=== PATIENT | female | born 1965 | race Caucasian/White ===

== ENCOUNTER 2016-02-17 10:58 | Inpatient (IN) | payer BC ==
[~2016-02-17] VITALS: Ht 162.6 cm; Wt 53.4 kg
[2016-02-17] VITALS (8 sets, daily range): BP systolic 82–123; BP diastolic 40–73; PULSE 101–122; TEMP 37.4–39.3; O2SAT 94–100; Ht 162.6 cm; Wt 53.4 kg
[2016-02-17] MEDS ORDERED: MoRPHine SULFATE 4 MG/ML 1 ML CARP\\VIAL IV STA (11:18)
[2016-02-17] MEDS ORDERED: SODIUM CHLORIDE 0.9% 1000ML 1,000 ML IV STA (11:18)
[2016-02-17] MEDS ORDERED: ONDANSETRON INJ 2 MG/ML 2 ML VIAL IV STA (11:18)
[2016-02-17] MEDS ORDERED: CLON0.5T3 PO (11:19)
[2016-02-17 11:31] LABS: BASO % 0.1 %; BASO ABS # 0.02 K/uL (0-0.2); COMPLETE YES; EOS % 0.1 %; HEMATOCRIT 40.6 % (37-47); IG% 0.3 %; LYMPH % 3.7 %; LYMPH ABS # 0.69 K/uL (1.2-3.4); MEAN CELL VOLUME 91.4 fL (80-100); MEAN CORPUSCULAR HEMOGLOBIN 31.5 pg (25-34); MEAN CORPUSCULAR HGB CONC 34.5 g/dl (32-36); MEAN PLATELET VOLUME 9.4 fL (7.4-10.4); MONO % 5.9 %; NEUT % 89.9 %; PLATELET COUNT 276 K/uL (130-400); RED BLOOD COUNT 4.44 M/uL (4.2-5.4)
[2016-02-17 11:52] LABS: BUN/CREATININE RATIO 18.1 (10-20); CALCIUM 8.8 mg/dl (8.5-10.1); POTASSIUM 3.4 mmol/L (3.5-5.1)
--- NOTE | 2016-02-17 12:01 | DIAGNOSTIC IMAGING REPORT ---
CT OF THE ABDOMEN AND PELVIS WITHOUT CONTRAST, STONE PROTOCOL CLINICAL HISTORY: Right flank pain and hematuria. COMPARISON STUDY: CT of the abdomen and pelvis September 12, 2014. TECHNIQUE: Helical axial images of the abdomen and pelvis were obtained without IV or oral contrast according to renal stone protocol. FINDINGS: There is severe right hydroureteronephrosis due to a 1.1 x 0.8 cm mid right ureteral calculus located at the level the inferior right sacroiliac joint. Note is made of a 1.2 cm calculus within the lower pole of the right kidney. There is a 1.8 x 1 cm calculus within the right renal pelvis. There are bilateral renal calculi. There is no left hydronephrosis. Mild biliary ductal dilatation is unchanged since prior CT. There is no pancreatic ductal dilatation. Unenhanced images of the spleen and adrenal glands are unremarkable. There is no evidence for a bowel obstruction. There is mild right perinephric and periureteral infiltration. There is sigmoid diverticulosis without evidence for acute diverticulitis. No suspicious osseous lesions are identified. IMPRESSION: 1. 1.1 x 0.8 cm mid right ureteral calculus which results in severe right hydroureteronephrosis. 2. 1.8 x 1 cm right renal pelvis calculus and multiple right renal calculi. Electronically signed by: Eladio Melendrez M.D. 02/17/2016 11:59 AM Dictated Date/Time: 02/17/2016 11:49 AM
[2016-02-17] MEDS ORDERED: MoRPHine SULFATE 10 MG/ML CARP/VIAL IV STA (12:06)
[2016-02-17 12:35] LABS: URINE APPEARANCE CLOUDY (CLEAR); URINE BILIRUBIN NEG (NEG); URINE COLOR DK YELLOW; URINE EPITHELIAL CELL AUTO >30 /lpf (0-5); URINE NITRITE NEG (NEG); URINE SPECIFIC GRAVITY 1.033 (1.000-1.030); UROBILINOGEN NEG (NEG)
[2016-02-17 12:43] LABS: MANUAL MICROSCOPIC REQUIRED? NO; REVIEW REQ? YES
[2016-02-17] MEDS ORDERED: CEFTRIAXONE SOD INJ 1 GM ADDVIAL IV STA (13:09)
--- NOTE | 2016-02-17 13:47 | History and Physical ---
History & Physical Date & Time of Service: Feb 17, 2016 at 13:47 . Chief Complaint: flank pain, chills . Primary Care Physician: Quan Jones PA-C . History of Present Illness Source: patient, clinic records, hospital records 51 YO female followed by Quan Jones PA-C for primary care and Dr. Reese for Urology. History of multiple occurrences of renal / ureteral calculi, s/p multiple stents and other procedures. Developed right flank pain yesterday. Pain severe (10/10), radiating towards right buttock. No dysuria or hematuria. Severe chills, but no confirmed fever. Experiencing nausea and vomiting without hematemesis. Tried taking Percocet for pain without benefit. . Past Medical/Surgical History Chronic Medical Problems: (1) Endometriosis Status: Chronic (2) History of renal calculi Status: Chronic Surgical Problems: (1) Status post appendectomy Status: Chronic (2) Status post hysterectomy Status: Chronic (3) Status post laparoscopic procedure Permanent Comment: endometriosis Status: Chronic (4) Status post tubal ligation Status: Chronic . Family History FATHER Leukemia MOTHER Cardiac pacemaker Social History Smoking Status: Current Every Day Smoker (2 PPD) Occupational Status: employed Multi-Drug Resistant Organisms History of MDRO: No Allergies Coded Allergies: Oxycodone (Unverified Adverse Reaction, Unknown, upset stomach/nausea, 02/16) Home Medications Scheduled Clonazepam (Klonopin), 0.5 MG PO HS Review of Systems Constitutional: + chills, No fever, No weight loss Eyes: No diplopia, No worsening of vision ENT: No hearing loss, No nasal symptoms, No sore throat Respiratory: No cough, No shortness of breath, No wheezing Cardiovascular: No chest pain Abdomen: + nausea, + vomiting, No GI bleeding, No diarrhea Musculoskeletal: No joint pain, No muscle pain Genitourinary - Female: + problem reported (right flank pain), No dysuria, No hematuria Hematologic / Lymphatic: + abnormal bleeding/bruising (bruises easily), No swollen lymph nodes Integumentary: No new/changing skin lesions, No rash Physical Exam Vital Signs Date Time Temp Pulse Resp B/P Pulse Ox O2 Delivery O2 Flow Rate FiO2 02/17/16 12:24 98 02/17/16 12:21 100 16 107/67 99 Room Air 02/17/16 11:01 37.0 91 17 114/81 99 Room Air General Appearance: WD/WN, + moderate distress Head: normocephalic Eyes: normal inspection, PERRL, EOMI, sclerae normal ENT: normal ENT inspection, pharynx normal Neck: supple, no adenopathy, thyroid normal, no JVD, trachea midline Respiratory/Chest: lungs clear, no respiratory distress, no accessory muscle use Cardiovascular: regular rate, rhythm, no edema, no gallop, no JVD, + systolic murmur (I/ systolic murmur at base) Abdomen/GI: soft, no organomegaly, + tenderness (RLQ tenderness with guarding, but no rebound) Back: + right CVA tenderness Extremities/Musculoskelatal: normal inspection, no calf tenderness, no pedal edema 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 (PERRL, EOMI, no facial palsy), alert, normal mood/affect, oriented x 3 Skin: normal color, warm/dry, no rash Lymphatic: no adenopathy Diagnostics Laboratory Results Results Past 24 Hours Test 02/17/16 11:16 Range/Units White Blood Count 18.90 4.8-10.8 K/uL Red Blood Count 4.44 4.2-5.4 M/uL Hemoglobin 14.0 12.0-16.0 g/dL Hematocrit 40.6 37-47 % Mean Corpuscular Volume 91.4 80-100 fL Mean Corpuscular Hemoglobin 31.5 25-34 pg Mean Corpuscular Hemoglobin Concent 34.5 32-36 g/dl Platelet Count 276 130-400 K/uL Mean Platelet Volume 9.4 7.4-10.4 fL Neutrophils (%) (Auto) 89.9 % Lymphocytes (%) (Auto) 3.7 % Monocytes (%) (Auto) 5.9 % Eosinophils (%) (Auto) 0.1 % Basophils (%) (Auto) 0.1 % Neutrophils # (Auto) 17.01 1.4-6.5 K/uL Lymphocytes # (Auto) 0.69 1.2-3.4 K/uL Monocytes # (Auto) 1.12 0.11-0.59 K/uL Eosinophils # (Auto) 0.01 0-0.5 K/uL Basophils # (Auto) 0.02 0-0.2 K/uL RDW Standard Deviation 41.7 36.4-46.3 fL RDW Coefficient of Variation 12.4 11.5-14.5 % Immature Granulocyte % (Auto) 0.3 % Immature Granulocyte # (Auto) 0.05 0.00-0.02 K/uL Urine Color DK YELLOW Urine Appearance CLOUDY CLEAR Urine pH 5.0 4.5-7.5 Urine Specific [place] 1.033 1.000-1.030 Urine Protein NEG NEG Urine Glucose (UA) NEG NEG Urine Ketones TRACE NEG Urine Occult Blood 2+ NEG Urine Nitrite NEG NEG Urine Bilirubin NEG NEG Urine Urobilinogen NEG NEG Urine Leukocyte Esterase SMALL NEG Urine WBC (Auto) 10-30 0-5 /hpf Urine RBC (Auto) 0-4 0-4 /hpf Urine Hyaline Casts (Auto) 1-5 0-5 /lpf Urine Epithelial Cells (Auto) >30 0-5 /lpf Urine Bacteria (Auto) 1+ NEG Urine Crystals CALCIUM OXALATE NONE PRSENT Sodium Level 140 136-145 mmol/L Potassium Level 3.4 3.5-5.1 mmol/L Chloride Level 106 98-107 mmol/L Carbon Dioxide Level 24 21-32 mmol/L Anion Gap 10.0 3-11 mmol/L Blood Urea Nitrogen 18 7-18 mg/dl Creatinine 1.00 0.60-1.20 mg/dl Est Creatinine Clear Calc Drug Dose 57.4 ml/min Estimated GFR () 76.6 Estimated GFR (Non- 66.1 BUN/Creatinine Ratio 18.1 10-20 Random Glucose 85 70-99 mg/dl Calcium Level 8.8 8.5-10.1 mg/dl Total Bilirubin 0.7 0.2-1 mg/dl Direct Bilirubin 0.2 0-0.2 mg/dl Aspartate Amino Transf (AST/SGOT) 15 15-37 U/L Alanine Aminotransferase (ALT/SGPT) 14 12-78 U/L Alkaline Phosphatase 50 45-117 U/L Total Protein 7.1 6.4-8.2 gm/dl Albumin 3.9 3.4-5.0 gm/dl Lipase 86 73-393 U/L Diagnostic Radiology CT OF THE ABDOMEN AND PELVIS WITHOUT CONTRAST, STONE PROTOCOL CLINICAL HISTORY: Right flank pain and hematuria. COMPARISON STUDY: CT of the abdomen and pelvis September 12, 2014. TECHNIQUE: Helical axial images of the abdomen and pelvis were obtained without IV or oral contrast according to renal stone protocol. FINDINGS: There is severe right hydroureteronephrosis due to a 1.1 x 0.8 cm mid right ureteral calculus located at the level the inferior right sacroiliac joint. Note is made of a 1.2 cm calculus within the lower pole of the right kidney. There is a 1.8 x 1 cm calculus within the right renal pelvis. There are bilateral renal calculi. There is no left hydronephrosis. Mild biliary ductal dilatation is unchanged since prior CT. There is no pancreatic ductal dilatation. Unenhanced images of the spleen and adrenal glands are unremarkable. There is no evidence for a bowel obstruction. There is mild right perinephric and periureteral infiltration. There is sigmoid diverticulosis without evidence for acute diverticulitis. No suspicious osseous lesions are identified. IMPRESSION: 1. 1.1 x 0.8 cm mid right ureteral calculus which results in severe right hydroureteronephrosis. 2. 1.8 x 1 cm right renal pelvis calculus and multiple right renal calculi. Electronically signed by: Eladio Melendrez M.D. 02/17/2016 11:59 AM Dictated Date/Time: 02/17/2016 11:49 AM . Impression Assessment and Plan RIGHT URETERAL CALCULUS / HYDRONEPHROSIS / PROBABLE UTI History of nephrolithiasis. Right flank pain starting yesterday. No dysuria or hematuria. No fever, but experiencing severe chills. WBC 18,000. BP and lactate OK. UA showed leukocyte esterase, WBC's, bacteria, calcium oxalate crystals, many epithelial cells. CT demonstrated 1.1 cm calculus in right mid ureter with associated hydronephrosis. Urine culture obtained in ED. Received 1 dose of IV ceftriaxone which will be continued. IV fluids, tamsulosin, analgesics, anti-emetics. Consult Urology. HYPOKALEMIA K = 3.4. IV replacement. Follow. VTE PROPHYLAXIS No anticoagulants because of ureteral calculus and possible need for surgical intervention. SCD's. Ambulate. DISPOSITION Admit to Med-Surg Unit. Expected discharge to home. Medical follow-up with Quan Jones PA-C. Urology follow-up with Dr. Reese. . VTE Prophylaxis Given or contraindicated: SCD's
[2016-02-17 13:57] LABS: URINE APPEARANCE CLEAR (CLEAR); URINE BILIRUBIN NEG (NEG); URINE COLOR YELLOW; URINE EPITHELIAL CELL AUTO >30 /lpf (0-5); URINE NITRITE NEG (NEG); URINE PH 5.5 (4.5-7.5); URINE SPECIFIC GRAVITY 1.021 (1.000-1.030); UROBILINOGEN NEG (NEG)
[2016-02-17 13:59] LABS: MANUAL MICROSCOPIC REQUIRED? NO; REVIEW REQ? YES
[2016-02-17] MEDS ORDERED: HYDROmorphone INJ 1 MG/ML SYR IV ONE (14:30)
[2016-02-17] MEDS ORDERED: TAMSULOSIN HCL 0.4 MG CAP PO ONE (14:49)
--- NOTE | 2016-02-17 15:16 | EMERGENCY ROOM VISIT NOTE ---
ED Visit Note First contact with patient: 11:05 Chief Complaint: Flank pain. History of Present Illness: Ms. Grayson is a 51 year-old white female complaining of right flank pain. Historically patient reports she has a history of multiple kidney stones with complications of urinary tract infections, passing multiple stones at one time and large stones requiring surgery. Patient reports a 2 onset of right flank pain that started approximately 12-13 hours ago. Since that time the pain has been constant. The pain is currently described as sharp. The pain is radiating around the abdomen and into the right lower quadrant. She has not identified any aggravating or alleviating factors related to the pain. She reports she's been using Percocet cheek is her approximately 15-20 minutes of relief and then the pain becomes severe again. Associated with the pain there has been chills but no ashley fever and nausea with 1 episode of vomiting. Patient denies fevers, sweats, skin eruptions, skin color changes, upper respiratory tract symptoms, shortness of breath, chest pain, diarrhea, constipation, rectal bleeding, black/tarry stools, urinary symptoms, hematuria, vaginal bleeding, vaginal discharge, rectal/genital paresthesias, bowel and bladder dysfunction, lower extremity weakness/numbness/tingling. Review of Systems: As noted above in history of present illness. All body systems were reviewed and found to be negative as noted above. Past Medical History: As previously noted s/p appendectomy, hysterectomy, and multiple laparoscopic surgeries for endometriosis. Current Medications: Klonopin, Percocet. Allergies to Medications: Percocet; nauseous Social History: Patient is not employed; she feels safe in her home environment ; she admits to tobacco use and denies alcohol use. Physical Examination: Vital Signs: Date Time Temp Pulse Resp B/P Pulse Ox O2 Delivery O2 Flow Rate FiO2 02/17/16 15:00 38.4 109 16 123/73 97 Room Air 02/17/16 14:01 104 18 105/72 99 Room Air 02/17/16 13:58 99 Room Air 02/17/16 12:24 98 02/17/16 12:21 100 16 107/67 99 Room Air 02/17/16 11:01 37.0 91 17 114/81 99 Room Air GENERAL: 51-year-old female in mild to moderate distress due to pain, nontoxic- appearing, afebrile and hemodynamically stable. NEUROLOGICAL: Awake, alert and oriented to person, place and time. Answering questions appropriately and following commands. Normal gait. Good hand eye coordination. SKIN: Warm, dry and pink. No soft tissue eruptions or trauma noted. HEENT: Atraumatic and normocephalic. PERRLA. Sclera white and conjunctiva pink. Oral cavity moist and pink. Pharynx is nonerythematous or edematous. Speech normal. No lymphadenopathy. Trachea midline. No jugular venous distention. BACK: No tenderness over the bony spine or paraspinous muscles. Right sided CVA tenderness. THORAX: Lungs sounds are clear to auscultation and equal bilaterally with symmetrical chest wall. No wheezing, rales or rhonchi. No crepitus, tenderness , subcutaneous air or deformities noted. HEART: Regular rate and rhythm. No gallops, rubs or murmurs are appreciated. ABDOMEN: Flat, soft and nontender. Positive bowel sounds in all quadrants. No guarding, rigidity or organomegaly. EXTREMITIES: Moves all extremities well on command and with purpose. All distal neurovascular statuses are intact and equal bilaterally. ED Course: Patient is assessed as noted above. Laboratory Testing: Test 02/17/16 11:16 02/17/16 13:43 02/17/16 14:08 Range/Units White Blood Count 18.90 4.8-10.8 K/uL Red Blood Count 4.44 4.2-5.4 M/uL Hemoglobin 14.0 12.0-16.0 g/dL Hematocrit 40.6 37-47 % Mean Corpuscular Volume 91.4 80-100 fL Mean Corpuscular Hemoglobin 31.5 25-34 pg Mean Corpuscular Hemoglobin Concent 34.5 32-36 g/dl Platelet Count 276 130-400 K/uL Mean Platelet Volume 9.4 7.4-10.4 fL Neutrophils (%) (Auto) 89.9 % Lymphocytes (%) (Auto) 3.7 % Monocytes (%) (Auto) 5.9 % Eosinophils (%) (Auto) 0.1 % Basophils (%) (Auto) 0.1 % Neutrophils # (Auto) 17.01 1.4-6.5 K/uL Lymphocytes # (Auto) 0.69 1.2-3.4 K/uL Monocytes # (Auto) 1.12 0.11-0.59 K/uL Eosinophils # (Auto) 0.01 0-0.5 K/uL Basophils # (Auto) 0.02 0-0.2 K/uL RDW Standard Deviation 41.7 36.4-46.3 fL RDW Coefficient of Variation 12.4 11.5-14.5 % Immature Granulocyte % (Auto) 0.3 % Immature Granulocyte # (Auto) 0.05 0.00-0.02 K/uL Urine Color DK YELLOW YELLOW Urine Appearance CLOUDY CLEAR CLEAR Urine pH 5.0 5.5 4.5-7.5 Urine Specific [place] 1.033 1.021 1.000-1.030 Urine Protein NEG NEG NEG Urine Glucose (UA) NEG NEG NEG Urine Ketones TRACE 2+ NEG Urine Occult Blood 2+ 1+ NEG Urine Nitrite NEG NEG NEG Urine Bilirubin NEG NEG NEG Urine Urobilinogen NEG NEG NEG Urine Leukocyte Esterase SMALL NEG NEG Urine WBC (Auto) 10-30 1-5 0-5 /hpf Urine RBC (Auto) 0-4 0-4 0-4 /hpf Urine Hyaline Casts (Auto) 1-5 1-5 0-5 /lpf Urine Epithelial Cells (Auto) >30 >30 0-5 /lpf Urine Bacteria (Auto) 1+ NEG NEG Urine Crystals CALCIUM OXALATE NONE PRSENT Sodium Level 140 136-145 mmol/L Potassium Level 3.4 3.5-5.1 mmol/L Chloride Level 106 98-107 mmol/L Carbon Dioxide Level 24 21-32 mmol/L Anion Gap 10.0 3-11 mmol/L Blood Urea Nitrogen 18 7-18 mg/dl Creatinine 1.00 0.60-1.20 mg/dl Est Creatinine Clear Calc Drug Dose 57.4 ml/min Estimated GFR () 76.6 Estimated GFR (Non- 66.1 BUN/Creatinine Ratio 18.1 10-20 Random Glucose 85 70-99 mg/dl Calcium Level 8.8 8.5-10.1 mg/dl Total Bilirubin 0.7 0.2-1 mg/dl Direct Bilirubin 0.2 0-0.2 mg/dl Aspartate Amino Transf (AST/SGOT) 15 15-37 U/L Alanine Aminotransferase (ALT/SGPT) 14 12-78 U/L Alkaline Phosphatase 50 45-117 U/L Total Protein 7.1 6.4-8.2 gm/dl Albumin 3.9 3.4-5.0 gm/dl Lipase 86 73-393 U/L Urine Pathogenic Casts 0 /lpf Bedside Lactic Acid Venous 0.63 0.90-1.70 mmol/L Urine Culture: Pending (this culture is from the clean- catch and not the cath.) Radiological Testing: Noncontrast Abdominal/Pelvic CT: Was read by myself and the radiologist and shows a 1.1 x 0.8 cm mid right ureter calculus with severe right sided hydroureteronephrosis. And a 1.8 x 1 cm right renal pelvic calculus and multiple right renal calculi. Patient was hydrated with normal saline and she received a total of 10 mg of morphine IV for pain, 4 mg of Zofran IV for nausea and 1 g of Rocephin IV for antibiotic coverage. Patient was reassessed multiple times during her stay in the emergency department. Patient's case was reviewed with Dr. Rajan; we agreed on diagnostic approach, treatment, disposition and plan. Patient's case was consulted with case management, Dr. Reese, [facility] urology and Dr. Epsinoza, [facility] hospitalist, for medical observation/ admission. Patient was educated about tonight's findings. Clinical Impression: Irretractable pain from enlarged ureter calculus. Decision-Making: Initially my differential diagnosis I considered pyelonephritis , kidney stone, pancreatitis, hepatitis, musculoskeletal disorder and other causes. Disposition and Plan: Patient be brought in the hospital by Dr. Espinoza for medical observation/admission; please see his notes and disposition and plan.
[2016-02-17] MEDS ORDERED: PANTOprazole INJ 40 MG in SYRINGE 0 ML IV ONE (16:00)
[2016-02-17] MEDS ORDERED: NURSING VERBAL MED ORDER ONE (16:30)
[2016-02-17] MEDS ORDERED: PROPOFOL IV EMULSION 10 MG/ML 20 ML VIAL IV ONE (16:39)
[2016-02-17] MEDS ORDERED: LIDOCAINE HCL 2% 2 ML VIAL (20MG/ML) ONE (16:39)
[2016-02-17] MEDS ORDERED: FENTANYL CITRATE INJ 50 MCG/1 ML 2 ML VIAL ONE (16:39)
[2016-02-17] MEDS ORDERED: MIDAZOLAM HCL 1 MG/ML 2ML VIAL ONE (16:39)
--- NOTE | 2016-02-17 16:39 | Urology Consultation ---
History General Date of Service: Feb 17, 2016. Chief Complaint: obstructng right ureteral stone Primary Care Physician: Quan Jones PA-C Pt seen a urologist before?: Yes If yes, why?: stone and uti History of Present Illness I am asked by Dr Espinoza to evaluate and treat patient for stones. She was last treated in 2014 and she had uti and stones then too. Her pain this time started yesterday. She had fevers and severe pain. She has a high white count in ER. Her ct shows very large right ureteral snd renal stones Her urine seems infected. Imaging Imaging: CT Laboratory Labs were reviewed and are within normal limits unless listed below. Labs are available in the chart and at [facility] Past History other (utis, endometriosis) Past Surgical History: appendectomy, hysterectomy, tubal ligation, ureteral stent Family History Cardiac pacemaker MOTHER Leukemia FATHER Social History Smoking: less than 1 pack/day Alcohol: socially Drug use: none Marital status: Housing status: lives with family Occupation status: employed History of MDRO No Allergies Coded Allergies: Oxycodone (Unverified Adverse Reaction, Unknown, upset stomach/nausea, 02/16) Medications Home Medications: Home Meds and Scripts Medications Dose Route/Sig Max Daily Dose Days Date Category Klonopin (Clonazepam) 0.5 Mg Tab 0.5 Mg PO HS 02/17/16 Reported Inpatient Medications: Current Inpatient Medications Medications (Trade) Dose Ordered Sig/[place] Route Start Time Stop Time Status Last Admin Dose Admin Acetaminophen 650 mg 650 mg Q4H PRN PO 02/17/16 14:00 03/18/16 13:59 Lactated Ringer's 1,000 ml @ 250 mls/hr Q4H IV 02/17/16 15:00 03/18/16 14:59 Ceftriaxone Sodium/Dextrose (Rocephin Inj/ Dextrose Add-[place] 50ML) 50 ml @ 100 mls/hr DAILY@1400 IV 02/18/16 14:00 02/28/16 13:59 Ondansetron HCl (Zofran Inj) 4 mg Q6H PRN IV 02/17/16 15:00 03/18/16 14:59 Hydromorphone HCl (Dilaudid Inj) 1 mg Q2H PRN IV 02/17/16 15:00 03/02/16 14:59 Tamsulosin HCl (Flomax Cap) 0.4 mg BID PO 02/17/16 21:00 03/18/16 20:59 Clonazepam (Klonopin Tab) 0.5 mg HS PO 02/17/16 21:00 03/18/16 20:59 Miscellaneous Information 1 ea 1 ea ONE ONCE N/A 02/17/16 16:30 02/17/16 16:31 UNV Gentamicin Sulfate/Dextrose (Gentamicin Inj/ D5 100ml) 106 ml @ 100 mls/hr TODAY@1645 ONCE IV 02/17/16 16:45 02/17/16 17:48 Review of Systems Review of Systems Constitutional: + chills, + fever, + frequent headaches, No weight loss Gastrointestinal: + abdominal pain, + indigestion, + nausea Cardiovascular: No chest pain, No palpitations, No swelling ankles/feet Respiratory: + chronic cough, No shortness of breath Ears / Nose / Throat: No hearing loss Female : + frequent urination, + infections, + painful urination Physical Exam Vital Signs: Vital Signs Past 12 Hours Date Time Temp Pulse Resp B/P Pulse Ox O2 Delivery O2 Flow Rate FiO2 02/17/16 15:00 38.4 109 16 123/73 97 Room Air 02/17/16 14:01 104 18 105/72 99 Room Air 02/17/16 13:58 99 Room Air 02/17/16 12:24 98 02/17/16 12:21 100 16 107/67 99 Room Air 02/17/16 11:01 37.0 91 17 114/81 99 Room Air Physical Exam: General Appearance: WD/WN, no apparent distress, + thin Eyes: bilateral eyes normal inspection ENT: hearing grossly normal Respiratory/Chest: normal breath sounds, no respiratory distress, no accessory muscle use Cardiovascular: regular rate, rhythm Extremities: non-tender, normal inspection, no pedal edema, no calf tenderness Neurologic/Psychiatric: alert, normal mood/affect, oriented x 3 Skin: normal color, warm/dry, no rash Assessment & Plan Assessment & Plan large obstructing right ureteral stone and utis suspect she has a pyelonephritis behind the stone she needs urgent drainage. will add gentamycin now had rocephin in ER plan urgent right stent. plan ureteroscopy next week.
[2016-02-17] MEDS ORDERED: GENTAMICIN INJ 240 MG in DEXTROSE 5% 100ML 100 ML IV SCH (16:45)
[2016-02-17] MEDS ORDERED: GENTAMICIN INJ 240 MG in DEXTROSE 5% 100ML 100 ML IV ONE (16:45)
[2016-02-17] MEDS ORDERED: ONDANSETRON INJ 2 MG/ML 2 ML VIAL IV PRN (17:00)
[2016-02-17] MEDS ORDERED: EpHEDrine SULFATE INJ 50 MG/ML AMP IV PRN (17:00)
[2016-02-17] MEDS ORDERED: FENTANYL CITRATE INJ 50 MCG/1 ML 2 ML VIAL IV PRN (17:00)
[2016-02-17] MEDS ORDERED: ATROPINE SULFATE 0.1 MG/ML 5ML SYR IV PRN (17:00)
[2016-02-17] MEDS ORDERED: BELLADONNA/OPIUM SUPP 60 MG SUPP PR ONE (17:03)
[2016-02-17] MEDS ORDERED: BELLADONNA/OPIUM 60 MG SUPP PR ONE (17:11)
--- NOTE | 2016-02-17 17:27 | [facility] Operative Report ---
Operative Report Operative Date Feb 17, 2016. Pre-Operative Diagnosis uti and obstructing right ureteral stone Post-Operative Diagnosis same plus pyonephrosis Procedure(s) Performed cysto right stent placement Surgeon barbara Log Roller Surgeon(s) none Estimated Blood Loss 0mL Findings radio-opaque right mid ureteral stone radio-opaque right UP and LP stones, pyonephrosis once wire passed ureteral stone Fluids 700mL Specimens urine after stent placement for cutlure Drains 6 fr 24 centimeter double J stent Anesthesia iv sedation Complication(s) None Disposition Recovery Room / PACU Indications large obstructing right ureteral stone with febrile UTI Description of Procedure Patient was sedated and placed in lithotomy position. Her genitals were prepped and draped in sterile fashion. Time out held with team. I placed a 21 fr rigid cystoscope to bladder. The urethra is unremarkable. The UOs are in normal location. The urine is cloudy. I placed a stiff wire up right ureter and it has some resistance passing the right radio-opaque mid ureteral stone. The upper ureter is tortuous and there is another loop de loop to gain entry into kidney proper. There is gross pus draining once wire went passed the ureteral stone. I placed a 24 centimeter 6 Fr double J stent easily. There is brisk very cloudy efflux of urine after placement. I sent some of the cloudy urine for culture. I left bladder empty and concluded case. I placed a belladonna and opium suppository for post-op pain. She transferred to recovery under my escort, in stable condition. Plan: admission for iv antibiotics and fluids Pyridium for dysuria x 3 days flomax daily until stones and stent out oral pain meds as needed await culture data for picking antibiotic to go home on. 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 Any exceptions are noted below.
--- NOTE | 2016-02-17 17:34 | Anesthesiology Progress Note ---
Anesthesia Post Op Note Date & Time Feb 17, 2016 at 17:33 Vital Signs Pain Intensity: 0 Vital Signs Past 12 Hours Date Time Temp Pulse Resp B/P Pulse Ox O2 Delivery O2 Flow Rate FiO2 02/17/16 17:28 95/63 02/17/16 17:27 102 17 100 02/17/16 17:27 103 17 02/17/16 17:23 98/63 02/17/16 17:22 103 12 100 02/17/16 17:22 104 12 02/17/16 17:18 100/60 02/17/16 17:17 37.6 110 20 100/68 100 Mask 10 02/17/16 17:17 110 18 100 02/17/16 17:17 110 18 02/17/16 15:00 38.4 109 16 123/73 97 Room Air 02/17/16 14:01 104 18 105/72 99 Room Air 02/17/16 13:58 99 Room Air 02/17/16 12:24 98 02/17/16 12:21 100 16 107/67 99 Room Air 02/17/16 11:01 37.0 91 17 114/81 99 Room Air Notes Mental Status: alert / awake / arousable, participated in evaluation Pt Amnestic to Procedure: Yes Nausea / Vomiting: adequately controlled Pain: adequately controlled Airway Patency, RR, SpO2: stable & adequate BP & HR: stable & adequate Hydration State: stable & adequate Anesthetic Complications: no major complications apparent
--- NOTE | 2016-02-17 18:07 | DIAGNOSTIC IMAGING REPORT ---
RIGHT KUB HISTORY: Right-sided stent placement. FLUOROSCOPY TIME: 21 seconds. FINDINGS: A single fluoroscopic spot image was submitted for review. The proximal portion of the right ureteral stent is visualized and is likely in good position. There are 2 large stones within the right kidney. IMPRESSION: Fluoroscopy provided for right ureteral stent placement.. Electronically signed by: Zacarias Harmon M.D. 02/17/2016 6:05 PM Dictated Date/Time: 02/17/2016 6:04 PM
[2016-02-17] MEDS: TAMSULOSIN HCL 0.4 MG CAP PO SCH (18:20)
[2016-02-17] MEDS: LACTATED RINGER'S 1000ML 1,000 ML IV SCH ×3 (18:20→22:31)
[2016-02-17] MEDS: ONDANSETRON INJ 2 MG/ML 2 ML VIAL IV PRN (18:30)
[2016-02-17] MEDS ORDERED: SODIUM CHLORIDE 0.9% 500ML 500 ML IV SCH ×3 (20:15→23:45)
[2016-02-17] MEDS: ACETAMINOPHEN 325 MG TAB PO PRN (20:29)
[2016-02-17] MEDS: CLONAZEPAM 0.5 MG TAB PO SCH (20:51)
--- NOTE | 2016-02-17 22:20 | Progress Note ---
Progress Note IM RECHECK Patient developed fever this afternoon. Received dose of gentamicin in addition to ceftriaxone previously administered. Right ureteral stent placed by Dr. Reese. Systolic BP running in 80's. Patient indicates that her BP's usually run low- typically 90's - low 100's. Outpatient records reviewed and pt's recollection of BP readings confirmed. Continue antibiotics and IV fluids. .
[2016-02-17] MEDS ORDERED: TRAMADOL HCL 50 MG TAB PO PRN (23:45)
[2016-02-18] VITALS (8 sets, daily range): BP systolic 92–104; BP diastolic 49–64; PULSE 87–104; TEMP 37.2–37.9; O2SAT 92–95
[2016-02-18] MEDS: LACTATED RINGER'S 1000ML 1,000 ML IV SCH ×3 (02:51→12:59)
[2016-02-18] MEDS: HYDROmorphone INJ 1 MG/ML SYR IV PRN ×3 (03:04→23:46)
[2016-02-18] MEDS: ACETAMINOPHEN 325 MG TAB PO PRN ×3 (03:08→13:18)
[2016-02-18 05:45] LABS: HEMATOCRIT 30.1 % (37-47); MEAN CELL VOLUME 91.8 fL (80-100); MEAN CORPUSCULAR HEMOGLOBIN 30.8 pg (25-34); MEAN CORPUSCULAR HGB CONC 33.6 g/dl (32-36); MEAN PLATELET VOLUME 9.4 fL (7.4-10.4); PLATELET COUNT 169 K/uL (130-400); RED BLOOD COUNT 3.28 M/uL (4.2-5.4); WHITE BLOOD COUNT 9.31 K/uL (4.8-10.8)
[2016-02-18 06:20] LABS: BUN/CREATININE RATIO 13.2 (10-20); CALCIUM 7.4 mg/dl (8.5-10.1); CREATININE 0.63 mg/dl (0.60-1.20); POTASSIUM 3.5 mmol/L (3.5-5.1)
[2016-02-18] MEDS: PHENAZOPYRIDINE HCL 200 MG TAB PO PRN ×2 (08:46→20:49)
[2016-02-18] MEDS: TAMSULOSIN HCL 0.4 MG CAP PO SCH ×2 (08:46→20:49)
--- NOTE | 2016-02-18 09:23 | DIAGNOSTIC IMAGING REPORT ---
CHEST 2 VIEWS ROUTINE HISTORY: Short of breath. COMPARISON: Abdomen and pelvis CT 02/17/2016. FINDINGS: No pneumothorax. The heart is normal in size. Old, healed left lower rib fractures. Bibasilar interstitial thickening with a right lateral lung base opacity. This has developed in the interval. There is also a trace right pleural effusion. IMPRESSION: Interval development of a right lower lobe airspace opacity with a trace right pleural effusion. This is consistent with a pneumonia, possibly secondary to aspiration. Electronically signed by: Zacarias Harmon M.D. 02/18/2016 9:21 AM Dictated Date/Time: 02/18/2016 9:19 AM
[2016-02-18] MEDS ORDERED: OPTIRAY 320 IV PRN (11:15)
--- NOTE | 2016-02-18 12:22 | Clinical Documentation Query ---
CLINICAL DOCUMENTATION QUERY 51-y/o female with obstructing right ureteral stone and UTI. In your clinical opinion is this patient being managed for: ( ) Early Sepsis POA resolved with quick intervention of IVF's, IV antibiotics and ureteral stenting. ( ) Other explanation of clinical findings (Please Explain) ( ) Unable to determine (Please Define) ( ) Need to Discuss ( ) Not Agree Please forward query to Dr. Summers- Attending Physician/Hospitalist. Thanks. Dimitri Rowe MD The medical record reflects the following clinical findings, treatment, and risk factors. Clinical Indicators: Shortly after admission patient spiked fever of 39.3 and was hypotensive 85/48. Presented with leukocytosis. Treatment: multiple IVF boluses, IVF's, IV Gentamycin, IV Ceftriaxone, Risk Factors: obstructive ureteral stone. Please clarify and document your clinical opinion in the progress notes and discharge summary. Terms such as "probable", "suspected", "likely", "questionable", "possible", or "still to be ruled out" are acceptable. IF IN AGREEMENT, YOU MUST DOCUMENT ABOVE DIAGNOSTIC STATEMENT IN DAILY PROGRESS NOTES AND DISCHARGE SUMMARY. This document is not part of the patient's record. Thank You, Paulo Pang, RN [phone]
--- NOTE | 2016-02-18 12:43 | DIAGNOSTIC IMAGING REPORT ---
CHEST CTA for PULMONARY ARTERIES CT DOSE: 199.14 mGy.cm HISTORY: Short of breath. TECHNIQUE: Multiaxial CT images of the chest were performed following the intravenous administration of contrast to evaluate the pulmonary arteries. Maximal intensity projection images were also obtained. COMPARISON STUDY: Chest 02/18/2016. FINDINGS: Normal caliber thoracic aorta with no evidence for dissection. No filling defects within the pulmonary arteries to suggest a pulmonary embolus. Small bilateral pleural effusions, right greater then left. No pericardial effusion. No pneumothorax. The central airways are patent. Trace fluid within the bilateral major fissures. Mild interlobular septal thickening at the lung bases. A 3 mm indeterminate pulmonary nodule within the right lower lobe on image 169. Linear/patchy air consolidation within the right lower lobe best seen on image 134. There is also bilateral posterior lower lobe consolidation, right greater than left. This favors compressive atelectasis from the pleural effusions. However, a pneumonia could also have a similar appearance. Heterogeneous superior mediastinal nodule which measures 3 cm. This may represent substernal extension of the thyroid goiter/nodule. The visualized liver, spleen, and adrenal glands are unremarkable. No mediastinal or hilar lymphadenopathy. No fractures within the visualized osseous structures. IMPRESSION: 1. No evidence for pulmonary embolus. 2. Small bilateral pleural effusions, right greater than left. There is associated posterior consolidation within the bilateral lower lobes and a patchy/linear density within the right lower lobe. This may represent compressive atelectasis from the pleural effusions or a pneumonia. 3. A 3 mm indeterminate pulmonary nodule within the right lower lobe. Please refer the chart below for recommended follow-up. 4. A 3 cm heterogeneous superior mediastinal nodule. This may represent substernal extension of a thyroid goiter/nodule. Six-month thyroid ultrasound follow-up can be performed to ensure stability. Please refer to below summary of Fleischner criteria recommendations for follow-up of incidental CT nodules (Dmitry Loredo, Guidelines for management of small pulmonary nodules detected on CT scans: A statement from the Fleischner Society, Radiology 237: [id number].) Low Risk Patient: Minimal or no smoking or other known risk factors for malignancy <=4 mm: No follow-up needed. >4-6 mm: Initial follow-up CT at 12 months; if unchanged, no further follow-up. >6-8 mm: Initial follow-up CT at 6-12 months then at 18-24 months if no change. >8 mm: Follow-up CT at \R\3, 9, 24 months, or PET and/or biopsy. High Risk Patient: History of smoking or other known risk factors <=4 mm: Follow-up at 12 months; if unchanged, no further follow-up. >4-6 mm: Initial follow-up CT at 6-12 months then at 18-24 months if no change. >6-8 mm: Initial follow-up CT at 3-6 months then at 9-12 and 24 months if no change. >8 mm: Same as low risk patient. Note: Nodule size measured as average of length and width. Ground glass or partly solid nodules may require longer follow-up to exclude indolent adenocarcinoma. Electronically signed by: Zacarias Harmon M.D. 02/18/2016 12:41 PM Dictated Date/Time: 02/18/2016 12:30 PM
[2016-02-18] MEDS: CEFTRIAXONE SOD INJ 1 GM in DEXTROSE 5% ADD-VANTAGE 50ML 50 ML IV SCH (12:59)
[2016-02-18] MEDS: ONDANSETRON INJ 2 MG/ML 2 ML VIAL IV PRN (16:42)
[2016-02-18] MEDS: CLONAZEPAM 0.5 MG TAB PO SCH (20:49)
--- NOTE | 2016-02-18 21:14 | Progress Note ---
Medicine Progress Note Date & Time of Visit: Feb 18, 2016 at 08:20 . Subjective Temp down. Mild dyspnea; occasional nonproductive cough. Mild midsternal heaviness. No further nausea or vomiting. No diarrhea. Experiencing hematuria, but no dysuria. . Objective Last 8 Hrs Date Time Temp Pulse Resp B/P Pulse Ox O2 Delivery O2 Flow Rate FiO2 02/18/16 16:00 95 Room Air 2.0 02/18/16 15:22 37.9 87 17 97/61 95 Room Air 02/18/16 14:28 37.3 Physical Exam: General- no distress Neck- no JVD Lungs- essentially clear Heart- RRR, no gallop appreciated Abdomen- + BS, soft, nontender Back- less right CVA tenderness Extremities- no pretibial edema or calf tenderness Neuro- alert . Laboratory Results: Last 24 Hours Test 02/18/16 05:25 White Blood Count 9.31 K/uL Red Blood Count 3.28 M/uL Hemoglobin 10.1 g/dL Hematocrit 30.1 % Mean Corpuscular Volume 91.8 fL Mean Corpuscular Hemoglobin 30.8 pg Mean Corpuscular Hemoglobin Concent 33.6 g/dl RDW Standard Deviation 42.1 fL RDW Coefficient of Variation 12.5 % Platelet Count 169 K/uL Mean Platelet Volume 9.4 fL Sodium Level 141 mmol/L Potassium Level 3.5 mmol/L Chloride Level 111 mmol/L Carbon Dioxide Level 21 mmol/L Anion Gap 9.0 mmol/L Blood Urea Nitrogen 8 mg/dl Creatinine 0.63 mg/dl Est Creatinine Clear Calc Drug Dose 91.1 ml/min Estimated GFR () 122.1 Estimated GFR (Non- 105.3 BUN/Creatinine Ratio 13.2 Random Glucose 87 mg/dl Calcium Level 7.4 mg/dl Diagnostic Imaging: CHEST 2 VIEWS ROUTINE HISTORY: Short of breath. COMPARISON: Abdomen and pelvis CT 02/17/2016. FINDINGS: No pneumothorax. The heart is normal in size. Old, healed left lower rib fractures. Bibasilar interstitial thickening with a right lateral lung base opacity. This has developed in the interval. There is also a trace right pleural effusion. IMPRESSION: Interval development of a right lower lobe airspace opacity with a trace right pleural effusion. This is consistent with a pneumonia, possibly secondary to aspiration. Electronically signed by: Zacarias Harmon M.D. 02/18/2016 9:21 AM Dictated Date/Time: 02/18/2016 9:19 AM CTA CHEST IMPRESSION: 1. No evidence for pulmonary embolus. 2. Small bilateral pleural effusions, right greater than left. There is associated posterior consolidation within the bilateral lower lobes and a patchy/linear density within the right lower lobe. This may represent compressive atelectasis from the pleural effusions or a pneumonia. 3. A 3 mm indeterminate pulmonary nodule within the right lower lobe. Please refer the chart below for recommended follow-up. 4. A 3 cm heterogeneous superior mediastinal nodule. This may represent substernal extension of a thyroid goiter/nodule. Six-month thyroid ultrasound follow-up can be performed to ensure stability. Electronically signed by: Zacarias Harmon M.D. 02/18/2016 12:41 PM Dictated Date/Time: 02/18/2016 12:30 PM . Other Studies: EKG performed at 08:35 reviewed and demonstrated NSR at 80 / minute, no acute ST or T-wave changes. . Assessment & Plan RIGHT URETERAL STONE / HYDRONEPHROSIS / UTI (PYELONEPHRITIS) Presented with right flank pain. CT demonstrated right ureteral stone measuring 1.1 x 0.8 cm. WBC on admission 18,000. Afebrile at time of admission, but developed fever later in the day. Cath UA showed only 1-5 WBC's and no bacteria. Urology consulted. Received IV ceftriaxone as well as IV gentamicin. Drained cloudy urine via stent indicating probable pyelonephritis. Clinically improved. Temp down. WBC down to 9310. Continue ceftriaxone pending culture results. SOB Patient noted some dyspnea. Minimal cough. No pleuritic chest pain. O2 sats 95% on RA. Imaging by CT negative for PE. Pleural effusion probably secondary to IV fluids for renal calculus. RLL infiltrate on chest x-ray most likely represents atelectasis. PULMONARY NODULE 3 mm indeterminate pulmonary nodule RLL noted on CT chest. Smokes cigarettes; also has history of endometrial dysplasia or atypia. Repeat CT 12 months per Fleischner criteria. No need for subsequent follow-up if stable at that time. 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 Will review CT with Thoracic Surgery for their input. HYPOKALEMIA K 3.4 on admission. Received IV replacement. K today = 3.5. Follow. SMOKING Smoking cessation counseling. VTE PROPHYLAXIS No anticoagulants because of ureteral calculus and possible need for surgical intervention. SCD's. Ambulate. DISPOSITION Expected discharge to home. Medical follow-up with Quan Jones PA-C. Urology follow-up with Dr. Reese. . Consultants: Urology . Current Inpatient Medications: Current Inpatient Medications Medications (Trade) Dose Ordered Sig/Chelsea Route Start Time Stop Time Status Last Admin Dose Admin Acetaminophen 650 mg 650 mg Q4H PRN PO 02/17/16 14:00 03/18/16 13:59 02/18/16 13:18 650 MG Ceftriaxone Sodium/Dextrose (Rocephin Inj/ Dextrose Add-[place] 50ML) 50 ml @ 100 mls/hr DAILY@1400 IV 02/18/16 14:00 02/28/16 13:59 02/18/16 12:59 100 MLS/HR Ondansetron HCl (Zofran Inj) 4 mg Q6H PRN IV 02/17/16 15:00 03/18/16 14:59 02/18/16 16:42 4 MG Hydromorphone HCl (Dilaudid Inj) 1 mg Q2H PRN IV 02/17/16 15:00 03/02/16 14:59 02/18/16 16:43 1 MG Tamsulosin HCl (Flomax Cap) 0.4 mg BID PO 02/17/16 21:00 03/18/16 20:59 02/18/16 20:49 0.4 MG Clonazepam (Klonopin Tab) 0.5 mg HS PO 02/17/16 21:00 03/18/16 20:59 02/18/16 20:49 0.5 MG Phenazopyridine HCl (Pyridium Tab) 200 mg TID PRN PO 02/17/16 18:00 03/18/16 17:59 02/18/16 20:49 200 MG Tramadol HCl (Ultram Tab) 50 mg Q4H PRN PO 02/17/16 23:45 03/18/16 23:44 02/18/16 14:30 50 MG Ioversol (Optiray 320) 125 ml UD PRN IV 02/18/16 11:15 02/22/16 11:14
--- NOTE | 2016-02-19 05:03 | Clinical Documentation Query ---
CLINICAL DOCUMENTATION QUERY 51-y/o female with obstructing right ureteral stone and UTI. In your clinical opinion is this patient being managed for: ( ) Early Sepsis POA resolved with quick intervention of IVF's, IV antibiotics and ureteral stenting. ( ) Other explanation of clinical findings (Please Explain) ( ) Unable to determine (Please Define) ( ) Need to Discuss ( x ) Not Agree Early sepsis not clearly defined. Patient's baseline sys BP's low. Urine cultures negative so far. Probably best not to use sepsis as diagnosis. The medical record reflects the following clinical findings, treatment, and risk factors. Clinical Indicators: Shortly after admission patient spiked fever of 39.3 and was hypotensive 85/48. Presented with leukocytosis. Treatment: multiple IVF boluses, IVF's, IV Gentamycin, IV Ceftriaxone, Risk Factors: obstructive ureteral stone. Please clarify and document your clinical opinion in the progress notes and discharge summary. Terms such as "probable", "suspected", "likely", "questionable", "possible", or "still to be ruled out" are acceptable. IF IN AGREEMENT, YOU MUST DOCUMENT ABOVE DIAGNOSTIC STATEMENT IN DAILY PROGRESS NOTES AND DISCHARGE SUMMARY. This document is not part of the patient's record. Thank You, Paulo Pang, RN [phone]
[2016-02-19 07:55] VITALS: BP 106/71; PULSE 84; TEMP 37.7; O2SAT 92
[2016-02-19 08:08] LABS: HEMATOCRIT 30.4 % (37-47); MEAN CELL VOLUME 90.5 fL (80-100); MEAN CORPUSCULAR HGB CONC 34.2 g/dl (32-36); MEAN PLATELET VOLUME 9.7 fL (7.4-10.4); PLATELET COUNT 170 K/uL (130-400); RED BLOOD COUNT 3.36 M/uL (4.2-5.4); WHITE BLOOD COUNT 7.15 K/uL (4.8-10.8)
[2016-02-19] MEDS: TAMSULOSIN HCL 0.4 MG CAP PO SCH ×3 (08:11→20:32)
[2016-02-19] MEDS: PHENAZOPYRIDINE HCL 200 MG TAB PO PRN ×2 (08:12→17:24)
[2016-02-19] MEDS: HYDROmorphone INJ 1 MG/ML SYR IV PRN ×3 (08:13→21:37)
[2016-02-19 08:28] LABS: BUN/CREATININE RATIO 8.6 (10-20); CALCIUM 8.1 mg/dl (8.5-10.1); CREATININE 0.58 mg/dl (0.60-1.20); POTASSIUM 3.2 mmol/L (3.5-5.1)
[2016-02-19 08:39] LABS: THYROID STIMULATING HORMONE 0.735 uIu/ml (0.300-4.500)
[2016-02-19] MEDS ORDERED: POTASSIUM CHLORIDE 20 MEQ TABCR PO ONE ×2 (08:45→18:00)
--- NOTE | 2016-02-19 11:01 | Anesthesiology Progress Note ---
Anesthesia Post Op Note Date & Time Feb 19, 2016 at 11:00 Vital Signs Pain Intensity: 6.0 Vital Signs Past 12 Hours Date Time Temp Pulse Resp B/P Pulse Ox O2 Delivery O2 Flow Rate FiO2 02/19/16 07:55 37.7 84 16 106/71 92 Room Air 02/18/16 23:35 Room Air Notes Mental Status: alert / awake / arousable, participated in evaluation Pt Amnestic to Procedure: Yes Nausea / Vomiting: adequately controlled Pain: adequately controlled Airway Patency, RR, SpO2: stable & adequate BP & HR: stable & adequate Hydration State: stable & adequate Anesthetic Complications: no major complications apparent
[2016-02-19] MEDS: CEFTRIAXONE SOD INJ 1 GM in DEXTROSE 5% ADD-VANTAGE 50ML 50 ML IV SCH (13:54)
[2016-02-19 15:10] VITALS: BP 109/72; PULSE 89; TEMP 37.1; O2SAT 93
[2016-02-19] MEDS ORDERED: OXYCODONE HCL IR 5 MG TAB (IMMEDIATE RELEASE) PO PRN (17:30)
--- NOTE | 2016-02-19 17:34 | Progress Note ---
Medicine Progress Note Date & Time of Visit: Feb 19, 2016 at ~ 16:00 . Subjective Low grade temps. Occasional nonproductive cough; no significant dyspnea. Mild chest "heaviness," no worse than yesterday. Some nausea; no emesis or diarrhea. Persistent right flank pain. No dysuria or gross hematuria. . Objective Last 8 Hrs Date Time Temp Pulse Resp B/P Pulse Ox O2 Delivery O2 Flow Rate FiO2 02/19/16 15:10 37.1 89 18 109/72 93 Room Air Physical Exam: General- no distress Neck- no JVD Lungs- clear to auscultation Heart- RRR Abdomen- + BS, soft, nontender Back- right CVA tenderness Extremities- no pretibial edema or calf tenderness Neuro- alert . Laboratory Results: Last 24 Hours Test 02/19/16 07:36 White Blood Count 7.15 K/uL Red Blood Count 3.36 M/uL Hemoglobin 10.4 g/dL Hematocrit 30.4 % Mean Corpuscular Volume 90.5 fL Mean Corpuscular Hemoglobin 31.0 pg Mean Corpuscular Hemoglobin Concent 34.2 g/dl RDW Standard Deviation 41.9 fL RDW Coefficient of Variation 12.6 % Platelet Count 170 K/uL Mean Platelet Volume 9.7 fL Sodium Level 142 mmol/L Potassium Level 3.2 mmol/L Chloride Level 110 mmol/L Carbon Dioxide Level 21 mmol/L Anion Gap 11.0 mmol/L Blood Urea Nitrogen 5 mg/dl Creatinine 0.58 mg/dl Est Creatinine Clear Calc Drug Dose 98.9 ml/min Estimated GFR () 125.4 Estimated GFR (Non- 108.2 BUN/Creatinine Ratio 8.6 Random Glucose 90 mg/dl Calcium Level 8.1 mg/dl Thyroid Stimulating Hormone (TSH) 0.735 uIu/ml Assessment & Plan RIGHT URETERAL STONE / HYDRONEPHROSIS / UTI (PYELONEPHRITIS) Presented with right flank pain. CT demonstrated right ureteral stone measuring 1.1 x 0.8 cm. WBC on admission 18,000. Afebrile at time of admission, but developed fever later in the day. Cath UA showed only 1-5 WBC's and no bacteria. Urology consulted. Received IV ceftriaxone as well as well as IV gentamicin. Drained cloudy urine via stent indicating probable pyelonephritis. Clinically improved. Temp down. WBC down to 7150. First urine culture cancelled (not clean specimen). Second urine growing Gardnerella-like Bacilli- probable vaginal joesph. Third urine culture from stent placement negative so far (obtained after IV ceftriaxone + gent). Continue SOB Patient noted some dyspnea on 02/18/16. Minimal cough. No pleuritic chest pain. O2 sats 95% on RA. Imaging by CT negative for PE. Pleural effusion probably secondary to IV fluids for renal calculus. RLL infiltrate on chest x-ray most likely represents atelectasis. Incentive spirometry. Follow. PULMONARY NODULE 3 mm indeterminate pulmonary nodule RLL noted on CT chest. Smokes cigarettes; also has history of endometrial dysplasia or atypia. Repeat CT 12 months per Fleischner criteria. No need for subsequent follow-up if stable at that time. 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 Consult Thoracic Surgery. HYPOKALEMIA K 3.4 on admission. Received IV replacement. K today = 3.2. PO KCl today. Follow. SMOKING Smoking cessation counseling. VTE PROPHYLAXIS No anticoagulants because of ureteral calculus and hematuria. SCD's. Ambulate. DISPOSITION Expected discharge to home. Medical follow-up with Quan Jones PA-C. Urology follow-up with Dr. Reese. . Consultants: Urology . Current Inpatient Medications: Current Inpatient Medications Medications (Trade) Dose Ordered Sig/[place] Route Start Time Stop Time Status Last Admin Dose Admin Acetaminophen 650 mg 650 mg Q4H PRN PO 02/17/16 14:00 03/18/16 13:59 02/18/16 13:18 650 MG Ceftriaxone Sodium/Dextrose (Rocephin Inj/ Dextrose Add-[place] 50ML) 50 ml @ 100 mls/hr DAILY@1400 IV 02/18/16 14:00 02/28/16 13:59 02/19/16 13:54 100 MLS/HR Ondansetron HCl (Zofran Inj) 4 mg Q6H PRN IV 02/17/16 15:00 03/18/16 14:59 02/18/16 16:42 4 MG Hydromorphone HCl (Dilaudid Inj) 1 mg Q2H PRN IV 02/17/16 15:00 03/02/16 14:59 02/19/16 13:54 1 MG Tamsulosin HCl (Flomax Cap) 0.4 mg BID PO 02/17/16 21:00 03/18/16 20:59 02/18/16 20:49 0.4 MG Clonazepam (Klonopin Tab) 0.5 mg HS PO 02/17/16 21:00 03/18/16 20:59 02/18/16 20:49 0.5 MG Phenazopyridine HCl (Pyridium Tab) 200 mg TID PRN PO 02/17/16 18:00 03/18/16 17:59 02/19/16 17:24 200 MG Tramadol HCl (Ultram Tab) 50 mg Q4H PRN PO 02/17/16 23:45 03/18/16 23:44 02/18/16 14:30 50 MG Ioversol (Optiray 320) 125 ml UD PRN IV 02/18/16 11:15 02/22/16 11:14 Fluconazole (Diflucan Tab) 100 mg TODAY@2100 ONCE PO 02/19/16 21:00 02/19/16 21:01
[2016-02-19] MEDS: OXYCODONE HCL IR 5 MG TAB (IMMEDIATE RELEASE) PO PRN (19:21)
[2016-02-19 19:42] VITALS: BP 101/67; PULSE 86; TEMP 37.1; O2SAT 94
--- NOTE | 2016-02-19 20:06 | SURGICAL CONSULTATION ---
DATE OF CONSULTATION: 02/19/2016 REASON FOR CONSULTATION: Superior mediastinal mass. HISTORY OF PRESENT ILLNESS: Indu Grayson is a very nice 51-year-old female with a history of multiple ureteral calculi who presented with a renal stone and developed severe chills and was admitted to the hospital 2 days ago on 02/17/2016. She really did not feel well. Her white count when she presented was 18,090. This has now come down. She was also fairly ill with a maximal temperature of 39.3. She has had kidney stones and was taken to the operating room by Dr. Clara Reese who performed a cystoscopy with a right ureteral stent. She is now improved; however, CT scan was obtained of her chest as her chest x-ray showed a possible pneumonia. This showed small bilateral pleural effusions which were not present when she presented and she had been fluid resuscitated aggressively. The problem is the patient has a superior mediastinal mass. This is actually right at the sternal notch and does not appear to be part of the thyroid. My only concern is it did not enhance like the thyroid. I was asked to comment on this. In addition, she has a 3 mm right lower lobe nodule which I am not too concerned about, given her changes in fluid. It should be noted that patient had no pleural fluid at all when she came in on 02/17/2016 but after aggressive resuscitation, she has a right pleural effusion. I am sure this is transient. PAST MEDICAL HISTORY: Significant for cigarette smoking which is concerning. She really has not had any weight loss or other systemic signs of any type of metastatic disease. 1. Active cigarette smoking (has averaged about half a pack per day for the last 35 years). 2. History of nephrolithiasis. 3. Endometriosis. PAST SURGICAL HISTORY: 1. 3, para 3. 2. Status post gynecologic laparoscopic procedure for endometriosis. 3. Hysterectomy. 4. Appendectomy. 5. Multiple cystoscopies and ureteroscopies with ureteral stents. MEDICATIONS: Klonopin. ALLERGIES: OXYCODONE. SOCIAL HISTORY: The patient smokes half pack of cigarettes a day. She is employed. 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 She is . FAMILY MEDICAL HISTORY: Significant for father who had leukemia and her mother who had a pacemaker placed. Her children are healthy. REVIEW OF SYSTEMS: Her weight has been stable. She did have chills when she came in, but she denied specific fevers. She had no night sweats. She denies any auditory or visual symptoms. She denies any productive cough, shortness of breath. She has had difficulty swallowing. She has had no nausea, vomiting, diarrhea or any type of GI bleeding. She has had no joint swelling or peripheral edema. She has no signs of claudication. She did have right flank pain upon presenting. She denies hematuria. She states that she does bruise quite easily. She has had no neurologic signs. PHYSICAL EXAMINATION: GENERAL: This is a very thin, 5 feet 4 inches, 117-pound white female who is awake, alert and very anxious. HEENT: Her extraocular movements are intact. Her pupils are equal, round and reactive. Her sclerae are anicteric. She has no nasolabial flattening. Teeth are in fairly good repair. NECK: Supple. She physically has no supraclavicular or cervical lymphadenopathy, neck vein distention or thyromegaly. She has no carotid bruits. However, I am able to palpate this mass at the tip of her sternum. She is very thin and has no thyromegaly otherwise. LUNGS: Clear. HEART: She has a regular rate and rhythm of her heart. ABDOMEN: Flat, soft, and mild tenderness on the right. EXTREMITIES: She has no peripheral edema. She has no joint effusions. She has excellent peripheral pulses. NEUROLOGIC: Completely awake, alert and oriented. ASSESSMENT AND PLAN: Superior mediastinal mass. This could well be a goiter which is almost in the substernal space; however, I am a bit concerned that she may have subcarinal adenopathy. I am not concerned about the 3 mm mass in her right lower lobe. At this point, what I would like to do is let her settle down for a week or two as she was on the verge of becoming quite ill with this ureteral stone. I will set her up to see radiologist on an outpatient basis in the next week or so to have a needle biopsy under ultrasound guidance of this substernal mass and that should give us the information we need. Should it be thyroid tissue, then we will simply follow her. If it turns out she has anything different, I told her it is possible we would talk about removing this. DANIELD
[2016-02-19] MEDS: CLONAZEPAM 0.5 MG TAB PO SCH (20:31)
[2016-02-19] MEDS: DOCUSATE SODIUM 100 MG CAP PO SCH (20:32)
[2016-02-19] MEDS ORDERED: FLUCONAZOLE 100 MG TAB PO ONE (21:00)
[2016-02-19 22:57] VITALS: BP 101/66; PULSE 75; TEMP 36.9; O2SAT 94
[2016-02-20 06:35] LABS: HEMATOCRIT 30.4 % (37-47); MEAN CORPUSCULAR HEMOGLOBIN 30.8 pg (25-34); MEAN CORPUSCULAR HGB CONC 33.9 g/dl (32-36); MEAN PLATELET VOLUME 9.3 fL (7.4-10.4); PLATELET COUNT 187 K/uL (130-400); RED BLOOD COUNT 3.34 M/uL (4.2-5.4); WHITE BLOOD COUNT 7.48 K/uL (4.8-10.8)
[2016-02-20 07:23] LABS: BUN/CREATININE RATIO 10.5 (10-20); CALCIUM 8.3 mg/dl (8.5-10.1); CREATININE 0.57 mg/dl (0.60-1.20)
[2016-02-20 08:09] VITALS: BP 110/72; PULSE 85; TEMP 37.2; O2SAT 92
[2016-02-20] MEDS: DOCUSATE SODIUM 100 MG CAP PO SCH (09:43)
[2016-02-20] MEDS: TAMSULOSIN HCL 0.4 MG CAP PO SCH ×2 (09:43→21:49)
[2016-02-20] MEDS: PHENAZOPYRIDINE HCL 200 MG TAB PO PRN (09:44)
[2016-02-20] MEDS: POLYETHYLENE (MIRALAX) 17 GM PACK PO PRN (09:48)
[2016-02-20] MEDS: OXYCODONE HCL IR 5 MG TAB (IMMEDIATE RELEASE) PO PRN ×3 (09:48→19:59)
[2016-02-20] MEDS ORDERED: POLYETHYLENE (MIRALAX) 17 GM PACK PO ONE ×2 (10:55→19:00)
[2016-02-20] MEDS ORDERED: POLYETHYLENE (MIRALAX) 17 GM PACK PO PRN (11:00)
--- NOTE | 2016-02-20 13:50 | Progress Note ---
Medicine Progress Note Date & Time of Visit: Feb 20, 2016 at ~ 09:30 . Subjective Temp down. Persistent right flank pain, requiring IV hydromorphone for relief. ? itching after receiving oxycodone. No dysuria or gross hematuria. Nausea / appetite improved. Less SOB. . Objective Last 8 Hrs Date Time Temp Pulse Resp B/P Pulse Ox O2 Delivery O2 Flow Rate FiO2 02/20/16 08:28 Room Air 02/20/16 08:09 37.2 85 16 110/72 92 Room Air Physical Exam: General- no distress Lungs- clear to auscultation Heart- RRR Abdomen- + BS, soft, nontender Back- right CVA tenderness Extremities- no pretibial edema or calf tenderness Neuro- alert . Laboratory Results: Last 24 Hours Test 02/20/16 06:20 02/20/16 06:25 Sodium Level 142 mmol/L Potassium Level 4.0 mmol/L Chloride Level 109 mmol/L Carbon Dioxide Level 24 mmol/L Anion Gap 9.0 mmol/L Blood Urea Nitrogen 6 mg/dl Creatinine 0.57 mg/dl Est Creatinine Clear Calc Drug Dose 100.6 ml/min Estimated GFR () 126.2 Estimated GFR (Non- 108.9 BUN/Creatinine Ratio 10.5 Random Glucose 89 mg/dl Calcium Level 8.3 mg/dl White Blood Count 7.48 K/uL Red Blood Count 3.34 M/uL Hemoglobin 10.3 g/dL Hematocrit 30.4 % Mean Corpuscular Volume 91.0 fL Mean Corpuscular Hemoglobin 30.8 pg Mean Corpuscular Hemoglobin Concent 33.9 g/dl RDW Standard Deviation 43.1 fL RDW Coefficient of Variation 12.9 % Platelet Count 187 K/uL Mean Platelet Volume 9.3 fL Assessment & Plan RIGHT URETERAL STONE / HYDRONEPHROSIS / UTI (PYELONEPHRITIS) Presented with right flank pain. CT demonstrated right ureteral stone measuring 1.1 x 0.8 cm. WBC on admission 18,000. Afebrile at time of admission, but developed fever later in the day. Cath UA showed only 1-5 WBC's and no bacteria. Urology consulted. Received IV ceftriaxone as well as well as IV gentamicin. Drained cloudy urine via stent indicating probable pyelonephritis. Clinically improved. Temp down. WBC today = 7480. First urine culture cancelled (not clean specimen). Second urine grew Gardnerella-like Bacilli- probable vaginal joesph. Third urine culture from stent placement negative so far (obtained after IV ceftriaxone + gent). Transition to PO therapy with ciprofloxacin. Continue tamsulosin, analgesics. Outpatient lithotripsy anticipated after treatment of pyelonephritis. SOB Patient noted some dyspnea on 02/18/16. Minimal cough. No pleuritic chest pain. O2 sats 95% on RA. Imaging by CT negative for PE. Pleural effusion probably secondary to IV fluids for renal calculus. RLL infiltrate on chest x-ray most likely represents atelectasis. Incentive spirometry. Follow. PULMONARY NODULE 3 mm indeterminate pulmonary nodule RLL noted on CT chest. Smokes cigarettes; also has history of endometrial dysplasia or atypia. Repeat CT 12 months per Fleischner criteria. No need for subsequent follow-up if stable at that time. 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 Thoracic Surgery consulted. HYPOKALEMIA K 3.4 on admission. Received IV replacement. K yesterday = 3.2. Received PO KCl. K today = 4.0. Follow. SMOKING Smoking cessation counseling. VTE PROPHYLAXIS No anticoagulants because of ureteral calculus and hematuria. SCD's. Ambulate. DISPOSITION Expected discharge to home. Medical follow-up with Quan Jones PA-C. Urology follow-up with Dr. Reese. Thoracic Surgery follow-up with Dr. Go. . Consultants: Urology Thoracic Surgery . Procedures: IV fluids IV meds CT abdomen and pelvis CTA chest . Current Inpatient Medications: Current Inpatient Medications Medications (Trade) Dose Ordered Sig/Chelsea Route Start Time Stop Time Status Last Admin Dose Admin Acetaminophen 650 mg 650 mg Q4H PRN PO 02/17/16 14:00 03/18/16 13:59 02/18/16 13:18 650 MG Ceftriaxone Sodium/Dextrose (Rocephin Inj/ Dextrose Add-Subiaco 50ML) 50 ml @ 100 mls/hr DAILY@1400 IV 02/18/16 14:00 02/28/16 13:59 02/19/16 13:54 100 MLS/HR Ondansetron HCl (Zofran Inj) 4 mg Q6H PRN IV 02/17/16 15:00 03/18/16 14:59 02/18/16 16:42 4 MG Hydromorphone HCl (Dilaudid Inj) 1 mg Q2H PRN IV 02/17/16 15:00 03/02/16 14:59 02/19/16 21:37 1 MG Tamsulosin HCl (Flomax Cap) 0.4 mg BID PO 02/17/16 21:00 03/18/16 20:59 02/20/16 09:43 0.4 MG Clonazepam (Klonopin Tab) 0.5 mg HS PO 02/17/16 21:00 03/18/16 20:59 02/19/16 20:31 0.5 MG Phenazopyridine HCl (Pyridium Tab) 200 mg TID PRN PO 02/17/16 18:00 03/18/16 17:59 02/20/16 09:44 200 MG Ioversol (Optiray 320) 125 ml UD PRN IV 02/18/16 11:15 02/22/16 11:14 Oxycodone HCl (Roxicodone Immediate Rel Tab) 5 mg Q4H PRN PO 02/19/16 17:30 03/04/16 17:29 Oxycodone HCl (Roxicodone Immediate Rel Tab) 10 mg Q4H PRN PO 02/19/16 17:30 03/04/16 17:29 02/20/16 09:48 10 MG Docusate Sodium (coLACE CAP) 100 mg BID PO 02/19/16 21:00 03/20/16 20:59 02/20/16 09:43 100 MG Polyethylene (Miralax Powder Packet) 17 gm DAILY PRN PO 02/19/16 17:45 03/20/16 17:44 02/20/16 09:48 17 GM Polyethylene (Miralax Powder Packet) 17 gm DAILY PRN PO 02/20/16 11:00 03/21/16 10:59
[2016-02-20] MEDS: CEFTRIAXONE SOD INJ 1 GM in DEXTROSE 5% ADD-VANTAGE 50ML 50 ML IV SCH (13:55)
[2016-02-20 14:52] VITALS: BP 94/62; PULSE 83; TEMP 36.6; O2SAT 93
--- NOTE | 2016-02-20 17:33 | Progress Note ---
Subjective Date of Service: Feb 20, 2016. Subjective Pt evaluation today including: conversation w/ patient, physical exam, chart review, lab review, conversation w/ work and family life consultant Voiding: no voiding problems I spoke with patient by phone this am then saw her at bedside this evening. She feels well today is on oral pain meds about to switch to oral abt cipro. pain adequately controlled stent causing severe urinary frequency and some bladder pain. She will need daily narcotic at home and finds the pyridium helps too. Review of Systems Constitutional: + chills, + fatigue, + fever, + weakness Respiratory: No cough, No shortness of breath Cardiac: No chest pain Musculoskeletal: No calf pain Objective Vital Signs Date Time Temp Pulse Resp B/P Pulse Ox O2 Delivery O2 Flow Rate FiO2 02/20/16 14:52 36.6 83 16 94/62 93 Room Air 02/20/16 08:28 Room Air 02/20/16 08:09 37.2 85 16 110/72 92 Room Air 02/19/16 22:57 36.9 75 16 101/66 94 Room Air 02/19/16 19:42 37.1 86 18 101/67 94 Room Air 02/19/16 19:22 Room Air Physical Exam General Appearance: WD/WN, no apparent distress, + thin Eyes: normal inspection ENT: hearing grossly normal Respiratory/Chest: no respiratory distress, no accessory muscle use Neurologic/Psychiatric: alert, normal mood/affect, oriented x 3 Skin: normal color, warm/dry, no rash Laboratory Results Last 24 Hours Test 02/20/16 06:20 02/20/16 06:25 Sodium Level 142 mmol/L Potassium Level 4.0 mmol/L Chloride Level 109 mmol/L Carbon Dioxide Level 24 mmol/L Anion Gap 9.0 mmol/L Blood Urea Nitrogen 6 mg/dl Creatinine 0.57 mg/dl Est Creatinine Clear Calc Drug Dose 100.6 ml/min Estimated GFR () 126.2 Estimated GFR (Non- 108.9 BUN/Creatinine Ratio 10.5 Random Glucose 89 mg/dl Calcium Level 8.3 mg/dl White Blood Count 7.48 K/uL Red Blood Count 3.34 M/uL Hemoglobin 10.3 g/dL Hematocrit 30.4 % Mean Corpuscular Volume 91.0 fL Mean Corpuscular Hemoglobin 30.8 pg Mean Corpuscular Hemoglobin Concent 33.9 g/dl RDW Standard Deviation 43.1 fL RDW Coefficient of Variation 12.9 % Platelet Count 187 K/uL Mean Platelet Volume 9.3 fL Assessment and Plan large right ureteral and renal stones plan right ureteroscopy and laser lithotripsy basket stone extraction and stent exchange next Wednesday at [facility] I explained procedure and she signed consent stent discomfort typical. take stool softeners clear soda ok once daily needs to really push lots water needs 2 weeks abt total, longer if she takes 2 trips to OR for stone clearance I also offered to set up percutaneous stone removal at [facility] which is a good option for stones this large. She considered it but declines.
--- NOTE | 2016-02-20 19:05 | SURGERY PROGRESS NOTE ---
DATE: 02/20/2016 SUBJECTIVE: I saw Ms. Grayson today. She seemed a bit more relaxed. I told her we would like her to allow her to go home and we will get her set up for her needle biopsy. She understands. She is still having quite a bit of pain and is on narcotics for this. When she is stabilized further, she will be discharged. Her white count today is 7480 and she has good saturations on room air. We will continue to follow along at a distance until she is discharged.
[2016-02-20] MEDS ORDERED: DOCUSATE SODIUM/SENNA 50/8.6MG TAB PO ONE (21:00)
[2016-02-20 21:48] VITALS: BP 106/71; PULSE 80
[2016-02-20] MEDS: CIPROFLOXACIN 500 MG TAB PO SCH (21:50)
[2016-02-20] MEDS: CLONAZEPAM 0.5 MG TAB PO SCH (21:51)
[2016-02-20 23:33] VITALS: BP 99/66; PULSE 79; TEMP 37.2; O2SAT 94
[2016-02-21] MEDS: OXYCODONE HCL IR 5 MG TAB (IMMEDIATE RELEASE) PO PRN ×2 (00:25→10:37)
[2016-02-21] MEDS ORDERED: PHEN-1043 PO (07:44)
[2016-02-21] MEDS ORDERED: CIPR-255 PO (07:44)
[2016-02-21] MEDS ORDERED: OXYC1TAB3 PO (07:44)
[2016-02-21 07:45] VITALS: BP 111/73; PULSE 78; TEMP 37; O2SAT 94
--- NOTE | 2016-02-21 08:02 | Discharge Instructions ---
Discharge Instructions Admission Reason for Admission: kidney stone, kidney infection Discharge Discharge Diagnosis / Problem: kidney stone, kidney infection Discharge Goals Goal(s): Decrease discomfort, Improve disease control Activity Recommendations Activity Limitations: resume your previous activity . Instructions / Follow-Up Instructions / Follow-Up FOLLOW-UP APPOINTMENTS UROLOGY Dr. Reese as scheduled. THORACIC SURGERY Dr. Go. PRIMARY CARE Quan Jones PA-C NEW PRESCRIPTION MEDICATIONS ciprofloxacin (Cipro) 500 mg twice a day antibiotic for kidney infection oxycodone immediate release 5 mg pain medication 1 pill every 4-6 hrs for moderate pain may cause drowsiness- do not drive after taking 2 pills every 4-6 hrs for severe pain may cause constipation phenazopyridine (Pyridium) 200 mg don't use more than necessary 3 times a day as needed for bladder pain may discolor your urine NONPRESCRIPTION MEDICATIONS ibuprofen (Advil, Motrin) 200 mg take with food 3 pills 4 times a day as needed for moderate pain acetaminophen (Extra Strength Tylenol) 2 pills every 8 hours as needed for moderate pain docusate sodium (Colace) 100 mg twice a day as needed for constipation MiraLax as directed as needed for constipation diphenhydramine (Benadryl) 25 mg every 6 hrs as needed for itching OTHER INSTRUCTIONS Drink plenty of fluids. Strain urine. Do incentive spirometry (breathing exercises) at least 4 times a day for 1 week. Take deep breaths. Please quit smoking. Information is attached. Your primary care provider can assist you if necessary. CT scan of chest showed a very small spot measuring 3 mm. It is probably nothing to worry about, but you should have a repeat CT scan done in 12 months to make certain that it does not enlarge. Please ask your PCP to schedule the follow-up CT for you. Seek medical attention if you have: * temperature above 101 * chest pain or trouble breathing * abdominal pain, nausea, vomiting * diarrhea, dark stools or bloody stools * worsening back pain, large amount of blood in urine, burning when you urinate * any unanswered questions or concerns Call 911 if symptoms are severe. Call if you have any questions or problems. My cell # is [phone]. You can also reach a [facility] hospitalist on duty at [facility] 24 hours a day by calling [phone]. Please take good care of yourself. Tonio Espinoza . Current Hospital Diet Patient's current hospital diet: Regular Diet Discharge Diet Recommended Diet: Regular Diet Procedures Procedures Performed: CT abdomen + pelvis- kidney stone in right ureter, mutiple kidney stones in both kidneys CT chest- very small mass measuring 3 mm in right lung, repeat CT scan in 12 months recommended; mass in mid upper chest measuring 3 cm, evaluation as reccomended by Dr. Go Cystoscopy, Right Ureteral Stent Insertion Pending Studies Studies pending at discharge: no Medical Emergencies . Who to Call and When: Medical Emergencies: If at any time you feel your situation is an emergency, please call 911 immediately. . Non-Emergent Contact Non-Emergency issues call your: Primary Care Provider, Urologist . . "Provider Documentation" section prepared by Tonio Espinoza. VTE Core Measure Inpt VTE Proph given/why not?: SCD's [place] Drug Monitoring Program Search Results: patient reviewed within database, no issues identified
[2016-02-21 08:15] VITALS: O2SAT 94
[2016-02-21 08:22] LABS: BUN/CREATININE RATIO 8.2 (10-20); CALCIUM 8.8 mg/dl (8.5-10.1); CREATININE 0.68 mg/dl (0.60-1.20); POTASSIUM 4.2 mmol/L (3.5-5.1)
[2016-02-21] MEDS: TAMSULOSIN HCL 0.4 MG CAP PO SCH (09:27)
[2016-02-21] MEDS: CIPROFLOXACIN 500 MG TAB PO SCH (09:27)
[2016-02-21] MEDS: POLYETHYLENE (MIRALAX) 17 GM PACK PO PRN (09:28)
--- NOTE | 2016-02-21 09:44 | Progress Note ---
Medicine Progress Note Date & Time of Visit: Feb 21, 2016 at 09:25 . Subjective Feels much better. Afebrile x 2 days. Right flank pain improved, adequately controlled with oxycodone. No nausea, vomiting, diarrhea. Passing flatus and formed stool. . Objective Last 8 Hrs Date Time Temp Pulse Resp B/P Pulse Ox O2 Delivery O2 Flow Rate FiO2 02/21/16 08:15 94 Room Air 02/21/16 07:45 37.0 78 16 111/73 94 Room Air Physical Exam: General- no distress Lungs- clear to auscultation Heart- RRR Abdomen- + BS, soft, nontender Back- less right CVA tenderness Extremities- no pretibial edema; trace pedal edema; no calf tenderness Neuro- alert . Laboratory Results: Last 24 Hours Test 02/21/16 07:45 Sodium Level 140 mmol/L Potassium Level 4.2 mmol/L Chloride Level 104 mmol/L Carbon Dioxide Level 27 mmol/L Anion Gap 9.0 mmol/L Blood Urea Nitrogen 6 mg/dl Creatinine 0.68 mg/dl Est Creatinine Clear Calc Drug Dose 84.4 ml/min Estimated GFR () 119.0 Estimated GFR (Non- 102.7 BUN/Creatinine Ratio 8.2 Random Glucose 84 mg/dl Calcium Level 8.8 mg/dl Assessment & Plan RIGHT URETERAL STONE / HYDRONEPHROSIS / UTI (PYELONEPHRITIS) Presented with right flank pain. CT demonstrated right ureteral stone measuring 1.1 x 0.8 cm. WBC on admission 18,000. Afebrile at time of admission, but developed fever later in the day. Cath UA showed only 1-5 WBC's and no bacteria. Urology consulted. Received IV ceftriaxone as well as well as IV gentamicin. Cystoscopy and right ureteral stent placement performed. Drained cloudy urine via stent indicating probable pyelonephritis. Improved after stent placement. First urine culture cancelled (not clean specimen). Second urine grew Gardnerella-like Bacilli- probable vaginal joesph. Third urine culture from stent placement negative (but obtained after IV ceftriaxone + gent). Transition to PO therapy with ciprofloxacin. Continue ciprofloxacin to complete total of 14 days antibiotic therapy. Continue tamsulosin, analgesics. Outpatient lithotripsy anticipated after treatment of pyelonephritis. SOB Patient noted some dyspnea on 02/18/16. Minimal cough. No pleuritic chest pain. O2 sats were 95% on RA. Imaging by CT negative for PE. Pleural effusion probably secondary to IV fluids for renal calculus. RLL infiltrate on chest x-ray most likely represents atelectasis. Incentive spirometry. Follow. PULMONARY NODULE 3 mm indeterminate pulmonary nodule RLL noted on CT chest. Smokes cigarettes; also has history of endometrial dysplasia or atypia. Repeat CT 12 months per Fleischner criteria. No need for subsequent follow-up if stable at that time. 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 Thoracic Surgery consulted. Outpatient FNA recommended. HYPOKALEMIA K 3.4 on admission, fell as low as 3.2. Received replacement. K day of discharge = 4.2. SMOKING Smoking cessation counseling. VTE PROPHYLAXIS No anticoagulants because of ureteral calculus and hematuria. SCD's. Ambulating. DISPOSITION Discharge to home. Primary Care follow-up with Quan Jones PA-C. Urology follow-up with Dr. Reese. Thoracic Surgery follow-up with Dr. Go. . Consultants: Urology Thoracic Surgery . Procedures: IV fluids IV meds CT abdomen and pelvis CTA chest . Current Inpatient Medications: Current Inpatient Medications Medications (Trade) Dose Ordered Sig/Chelsea Route Start Time Stop Time Status Last Admin Dose Admin Acetaminophen (Tylenol Tab) 650 mg Q4H PRN PO 02/17/16 14:00 03/18/16 13:59 02/18/16 13:18 650 MG Ondansetron HCl (Zofran Inj) 4 mg Q6H PRN IV 02/17/16 15:00 03/18/16 14:59 02/18/16 16:42 4 MG Hydromorphone HCl (Dilaudid Inj) 1 mg Q2H PRN IV 02/17/16 15:00 03/02/16 14:59 02/19/16 21:37 1 MG Tamsulosin HCl (Flomax Cap) 0.4 mg BID PO 02/17/16 21:00 03/18/16 20:59 02/21/16 09:27 0.4 MG Clonazepam (Klonopin Tab) 0.5 mg HS PO 02/17/16 21:00 03/18/16 20:59 02/20/16 21:51 0.5 MG Phenazopyridine HCl (Pyridium Tab) 200 mg TID PRN PO 02/17/16 18:00 03/18/16 17:59 02/20/16 09:44 200 MG Ioversol (Optiray 320) 125 ml UD PRN IV 02/18/16 11:15 02/22/16 11:14 Oxycodone HCl (Roxicodone Immediate Rel Tab) 5 mg Q4H PRN PO 02/19/16 17:30 03/04/16 17:29 Oxycodone HCl (Roxicodone Immediate Rel Tab) 10 mg Q4H PRN PO 02/19/16 17:30 03/04/16 17:29 02/21/16 00:25 10 MG Polyethylene (Miralax Powder Packet) 17 gm DAILY PRN PO 02/19/16 17:45 03/20/16 17:44 02/21/16 09:28 17 GM Polyethylene (Miralax Powder Packet) 17 gm DAILY PRN PO 02/20/16 11:00 03/21/16 10:59 Ciprofloxacin (Cipro Tab) 500 mg BID PO 02/20/16 21:00 03/01/16 20:59 02/21/16 09:27 500 MG
--- NOTE | 2016-02-21 09:56 | Discharge Summary ---
Discharge Summary Admission Date: Feb 17, 2016 at 13:51 Discharge Date: Feb 21, 2016 Discharge Disposition: Home Principal Diagnosis: right ureteral calculus multiple bilateral renal calculi pyelonephritis abnormal CT chest (3 cm superior mediastinal mass, 3 mm RLL mass) . Secondary Diagnoses/Problems: Chronic Medical Problems: (1) Endometriosis Status: Chronic (2) History of renal calculi Status: Chronic Surgical Problems: (1) Status post appendectomy Status: Chronic (2) Status post hysterectomy Status: Chronic (3) Status post laparoscopic procedure Permanent Comment: endometriosis Status: Chronic (4) Status post tubal ligation Status: Chronic Procedures: IV fluids IV meds cystoscopy + right ureteral stent placement CT abdomen and pelvis IMPRESSION: 1. 1.1 x 0.8 cm mid right ureteral calculus which results in severe right hydroureteronephrosis. 2. 1.8 x 1 cm right renal pelvis calculus and multiple right renal calculi. Electronically signed by: Eladio Melendrez M.D. 02/17/2016 11:59 AM CTA chest IMPRESSION: 1. No evidence for pulmonary embolus. 2. Small bilateral pleural effusions, right greater than left. There is associated posterior consolidation within the bilateral lower lobes and a patchy/linear density within the right lower lobe. This may represent compressive atelectasis from the pleural effusions or a pneumonia. 3. A 3 mm indeterminate pulmonary nodule within the right lower lobe. Please refer the chart below for recommended follow-up. 4. A 3 cm heterogeneous superior mediastinal nodule. This may represent substernal extension of a thyroid goiter/nodule. Six-month thyroid ultrasound follow-up can be performed to ensure stability. Please refer to below summary of Fleischner criteria recommendations for follow-up of incidental CT nodules (Dmitry Loredo, Guidelines for management of small pulmonary nodules detected on CT scans: A statement from the Fleischner Society, Radiology 237: [id number].) Low Risk Patient: Minimal or no smoking or other known risk factors for malignancy <=4 mm: No follow-up needed. >4-6 mm: Initial follow-up CT at 12 months; if unchanged, no further follow- up. >6-8 mm: Initial follow-up CT at 6-12 months then at 18-24 months if no change. >8 mm: Follow-up CT at \\R\\3, 9, 24 months, or PET and/or biopsy. High Risk Patient: History of smoking or other known risk factors <=4 mm: Follow-up at 12 months; if unchanged, no further follow-up. >4-6 mm: Initial follow-up CT at 6-12 months then at 18-24 months if no change. >6-8 mm: Initial follow-up CT at 3-6 months then at 9-12 and 24 months if no change. >8 mm: Same as low risk patient. Note: Nodule size measured as average of length and width. Ground glass or partly solid nodules may require longer follow-up to exclude indolent adenocarcinoma. Electronically signed by: Zacarias Harmon M.D. 02/18/2016 12:41 PM Dictated Date/Time: 02/18/2016 12:30 PM . Consultations: Urology Thoracic Surgery . Pending Studies/Follow-Up: Please schedule f/u CT chest in 12 months re: RLL pulmonary nodule. . Medication Reconciliation New Medications: Ciprofloxacin Hcl (Cipro) 500 Mg Tab 500 MG PO BID, #20 TAB 0 Refills Oxycodone Immediate Rel Tab (Roxicodone Ir) 5 Mg Tab 0 PO UD PRN for Severe Pain, #60 TAB 1 pill every 4-6 hrs as needed for moderate pain. 2 pills every 4-6 hrs as needed for severe pain. Phenazopyridine HCl (Phenazopyridine HCl) 200 Mg Tab 200 MG PO TID PRN for Bladder pain, #21 TAB Continued Medications: Clonazepam (Klonopin) 0.5 Mg Tab 0.5 MG PO HS, TAB Admission Information HPI (per Admitting provider): 51 YO female followed by Quan Jones PA-C for primary care and Dr. Reese for Urology. History of multiple occurrences of renal / ureteral calculi, s/p multiple stents and other procedures. Developed right flank pain yesterday. Pain severe (10/10), radiating towards right buttock. No dysuria or hematuria. Severe chills, but no confirmed fever. Experiencing nausea and vomiting without hematemesis. Tried taking Percocet for pain without benefit. . Physical Exam (per Admitting): General Appearance: WD/WN, + moderate distress Head: normocephalic Eyes: normal inspection, PERRL, EOMI, sclerae normal ENT: normal ENT inspection, pharynx normal Neck: supple, no adenopathy, thyroid normal, no JVD, trachea midline Respiratory/Chest: lungs clear, no respiratory distress, no accessory muscle use Cardiovascular: regular rate, rhythm, no edema, no gallop, no JVD, + systolic murmur (I/ systolic murmur at base) Abdomen/GI: soft, no organomegaly, + tenderness (RLQ tenderness with guarding, but no rebound) Back: + right CVA tenderness Extremities/Musculoskelatal: normal inspection, no calf tenderness, no pedal edema Neurologic/Psych: 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 CT demonstrated right ureteral stone measuring 1.1 x 0.8 cm. WBC on admission 18,000. Afebrile at time of admission, but developed fever later in the day. Cath UA showed only 1-5 WBC's and no bacteria. Urology consulted. Received IV ceftriaxone as well as well as IV gentamicin. Cystoscopy and right ureteral stent placement performed. Drained cloudy urine via stent indicating probable pyelonephritis. Improved after stent placement. First urine culture cancelled (not clean specimen). Second urine grew Gardnerella-like Bacilli- probable vaginal joesph. Third urine culture from stent placement negative (but obtained after IV ceftriaxone + gent). Transition to PO therapy with ciprofloxacin. Continue ciprofloxacin to complete total of 14 days antibiotic therapy. Continue tamsulosin, analgesics. Outpatient lithotripsy anticipated after treatment of pyelonephritis. SOB Patient noted some dyspnea on 02/18/16. Minimal cough. No pleuritic chest pain. O2 sats were 95% on RA. Imaging by CT negative for PE. Pleural effusion probably secondary to IV fluids for renal calculus. RLL infiltrate on chest x-ray most likely represents atelectasis. Incentive spirometry. Follow. PULMONARY NODULE 3 mm indeterminate pulmonary nodule RLL noted on CT chest. Smokes cigarettes; also has history of endometrial dysplasia or atypia. Repeat CT 12 months per Fleischner criteria. No need for subsequent follow-up if stable at that time. 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 Thoracic Surgery consulted. Outpatient FNA recommended. HYPOKALEMIA K 3.4 on admission, fell as low as 3.2. Received replacement. K day of discharge = 4.2. SMOKING Smoking cessation counseling. VTE PROPHYLAXIS No anticoagulants because of ureteral calculus and hematuria. SCD's. Ambulating. DISPOSITION Discharge to home. Primary Care follow-up with Quan Jones PA-C. Urology follow-up with Dr. Reese. Thoracic Surgery follow-up with Dr. Go. . Total time spent on discharge = 35 min. This includes examination of the patient, discharge planning, medication reconciliation, and communication with other providers. . Discharge Instructions Admission Reason for Admission: kidney stone, kidney infection Discharge Discharge Diagnosis / Problem: kidney stone, kidney infection Discharge Goals Goal(s): Decrease discomfort, Improve disease control Activity Recommendations Activity Limitations: resume your previous activity . Instructions / Follow-Up Instructions / Follow-Up FOLLOW-UP APPOINTMENTS UROLOGY Dr. Reese as scheduled. THORACIC SURGERY Dr. Go. PRIMARY CARE Quan Jones PA-C NEW PRESCRIPTION MEDICATIONS ciprofloxacin (Cipro) 500 mg twice a day antibiotic for kidney infection oxycodone immediate release 5 mg pain medication 1 pill every 4-6 hrs for moderate pain may cause drowsiness- do not drive after taking 2 pills every 4-6 hrs for severe pain may cause constipation phenazopyridine (Pyridium) 200 mg don't use more than necessary 3 times a day as needed for bladder pain may discolor your urine NONPRESCRIPTION MEDICATIONS ibuprofen (Advil, Motrin) 200 mg take with food 3 pills 4 times a day as needed for moderate pain acetaminophen (Extra Strength Tylenol) 2 pills every 8 hours as needed for moderate pain docusate sodium (Colace) 100 mg twice a day as needed for constipation MiraLax as directed as needed for constipation diphenhydramine (Benadryl) 25 mg every 6 hrs as needed for itching OTHER INSTRUCTIONS Drink plenty of fluids. Strain urine. Do incentive spirometry (breathing exercises) at least 4 times a day for 1 week. Take deep breaths. Please quit smoking. Information is attached. Your primary care provider can assist you if necessary. CT scan of chest showed a very small spot measuring 3 mm. It is probably nothing to worry about, but you should have a repeat CT scan done in 12 months to make certain that it does not enlarge. Please ask your PCP to schedule the follow-up CT for you. Seek medical attention if you have: * temperature above 101 * chest pain or trouble breathing * abdominal pain, nausea, vomiting * diarrhea, dark stools or bloody stools * worsening back pain, large amount of blood in urine, burning when you urinate * any unanswered questions or concerns Call 911 if symptoms are severe. Call if you have any questions or problems. My cell # is [phone]. You can also reach a [facility] hospitalist on duty at [facility] 24 hours a day by calling [phone]. Please take good care of yourself. Tonio Espinoza . Current Hospital Diet Patient's current hospital diet: Regular Diet Discharge Diet Recommended Diet: Regular Diet Procedures Procedures Performed: CT abdomen + pelvis- kidney stone in right ureter, mutiple kidney stones in both kidneys CT chest- very small mass measuring 3 mm in right lung, repeat CT scan in 12 months recommended; mass in mid upper chest measuring 3 cm, evaluation as reccomended by Dr. Go Cystoscopy, Right Ureteral Stent Insertion Pending Studies Studies pending at discharge: no Medical Emergencies . Who to Call and When: Medical Emergencies: If at any time you feel your situation is an emergency, please call 911 immediately. . Non-Emergent Contact Non-Emergency issues call your: Primary Care Provider, Urologist . . "Provider Documentation" section prepared by Tonio Espinoza. VTE Core Measure Inpt VTE Proph given/why not?: SCD's [place] Drug Monitoring Program Search Results: patient reviewed within database, no issues identified . Additional Copies To Quan Jones PA-C; Clara Reese MD; Brad Go MD
[2016-02-21 11:28] VITALS: BP 111/73; PULSE 78; TEMP 37; O2SAT 94
--- NOTE | 2016-02-21 14:14 | SURGERY PROGRESS NOTE ---
DATE: 02/21/2016 DATE: 02/21/2016. Ms. Grayson was seen today on 02/21/2016. She definitely looks better. She states she still has swelling in her legs and her hands and wrist and she still is a bit fluid overloaded. She is scheduled for a lithotripsy of her ureteral stones next week. We will schedule her for her CT scan without contrast after that and I will see her back the following week.
[2016-02-24] MEDS ORDERED: PHEN-775 PO (08:35)
[2016-02-24] MEDS ORDERED: CIPR-255 PO (08:35)
[2016-02-24] MEDS ORDERED: OXYC1TAB3 PO (08:35)
[2016-02-26] MEDS ORDERED: PHEN-775 PO (09:39)
[2016-02-26] MEDS ORDERED: OXYC1TAB3 PO (09:39)
[2016-02-26] MEDS ORDERED: TAMS0.4C38 PO (09:39)
== END 2016-02-21 11:40 | disposition home or self-care (01) | DRG 690 ==
LOC: ENRESERVTM → ENRESERVDT → C.EDB 11:00 → C.MSN 13:51
PROVIDERS: ADMIT Hospitalist; ATTEND Hospitalist
PROC: 0T767DZ Dilation of Right Ureter with Intraluminal Device, Via Natural or Artificial Opening (ICD-10-PCS; principal; 2016-02-17 17:00)
DX: N13.6 Pyonephrosis (principal); N80.9 Endometriosis, unspecified; E87.6 Hypokalemia; F17.210 Nicotine dependence, cigarettes, uncomplicated; R91.1 Solitary pulmonary nodule; N13.2 Hydronephrosis with renal and ureteral calculous obstruction; Z87.442 Personal history of urinary calculi

== ENCOUNTER 2016-02-26 05:24 | Day surgery (SDC) | payer BC ==
[~2016-02-26] VITALS: Ht 162.6 cm; Wt 53.2 kg
[~2016-02-26 05:24] MED LIST: CIPR-255 PO; CLON0.5T3 PO; OXYC1TAB3 PO; PHEN-775 PO
[2016-02-26 05:41] VITALS: BP 110/62; PULSE 71; TEMP 36.6; O2SAT 97; Ht 162.6 cm; Wt 53.2 kg
[2016-02-26] MEDS ORDERED: CIPROFLOXACIN 500 MG TAB PO SCH (06:00)
[2016-02-26] MEDS ORDERED: GENTAMICIN INJ 240 MG in DEXTROSE 5% 100ML 100 ML IV SCH (06:00)
[2016-02-26] MEDS ORDERED: LACTATED RINGER'S 1000ML 1,000 ML IV SCH (06:00)
[2016-02-26] MEDS ORDERED: PROPOFOL IV EMULSION 10 MG/ML 20 ML VIAL IV ONE (06:22)
[2016-02-26] MEDS ORDERED: DEXAMETHASONE SOD INJ 4 MG/ML VIAL ONE (06:22)
[2016-02-26] MEDS ORDERED: MIDAZOLAM HCL 1 MG/ML 2ML VIAL ONE (06:22)
[2016-02-26] MEDS ORDERED: FENTANYL CITRATE INJ 50 MCG/1 ML 2 ML VIAL ONE (06:22)
[2016-02-26] MEDS ORDERED: ONDANSETRON INJ 2 MG/ML 2 ML VIAL ONE (06:22)
[2016-02-26] MEDS ORDERED: LIDOCAINE HCL 2% 2 ML VIAL (20MG/ML) ONE (06:22)
--- NOTE | 2016-02-26 07:08 | History and Physical ---
History Date of Service: Feb 26, 2016. Chief Complaint: right kidney stones and uti Primary Care Physician: Quan Jones PA-C Pt seen a urologist before?: Yes If yes, why?: same History of Present Illness Patient presents for stone removal. she has large right ureteral and renal stones and was urgently stented for fever 8 days ago. She has had an uneventful recovery on cipro. She has had increased urinary burning starting yesterday, Imaging CT Laboratory Labs were reviewed and are within normal limits unless listed below. Labs are available in the chart and at [facility] Past History Past Medical History: no pertinent history, kidney stones, other Pt had a problem w anesthesia?: No Past Surgical History: appendectomy, hysterectomy, tubal ligation, ureteral stent Family History Cardiac pacemaker MOTHER Leukemia FATHER Social History Hx Tobacco Use In Past Year?: No (NO CIG FOR A WEEK) Smoking: less than 1 pack/day Alcohol: socially Drug use: none Marital status: Housing status: lives with family Occupation status: employed History of MDRO No Allergies Coded Allergies: No Known Allergies (Unverified , 02/26/16) Medications Home Medications: Home Meds and Scripts Medications Dose Route/Sig Max Daily Dose Days Date Category Pyridium (Phenazopyridine Hcl) 200 Mg Tab 200 Mg PO TID PRN 02/24/16 Reported Roxicodone Ir (Oxycodone HCl) 5 Mg Tab 5 Mg PO Q6H PRN 02/24/16 Reported Cipro (Ciprofloxacin Hcl) 500 Mg Tab 500 Mg PO BID 02/24/16 Reported Klonopin (Clonazepam) 0.5 Mg Tab 0.5 Mg PO HS 02/17/16 Reported Inpatient Medications: Current Inpatient Medications Medications (Trade) Dose Ordered Sig/Chelsea Route Start Time Stop Time Status Last Admin Dose Admin Lactated Ringer's (Lr 1000ml) 1,000 ml @ 15 mls/hr Q24H IV 02/26/16 06:00 02/26/16 18:00 02/26/16 06:00 15 MLS/HR Ciprofloxacin (Cipro Tab) 500 mg PREOP PO 02/26/16 06:00 02/26/16 23:59 02/26/16 07:00 500 MG Review of Systems Review of Systems Constitutional: + chills, + fever, + frequent headaches Endocrine: + too cold, No too hot Gastrointestinal: + abdominal pain, No constipation, No indigestion, No nausea , No vomiting Respiratory: + chronic cough, No coughing up blood, No shortness of breath Female : + blood in urine, + frequent urination, + infections, + kidney stones, + painful urination Physical Exam Vital Signs: Vital Signs Past 12 Hours Date Time Temp Pulse Resp B/P Pulse Ox O2 Delivery O2 Flow Rate FiO2 02/26/16 05:41 36.6 71 16 110/62 97 Room Air Physical Exam: General Appearance: WD/WN, no apparent distress, + thin Eyes: bilateral eyes normal inspection ENT: hearing grossly normal Respiratory/Chest: lungs clear, normal breath sounds, no respiratory distress, no accessory muscle use Cardiovascular: regular rate, rhythm, no edema Extremities: non-tender, normal inspection, no pedal edema, no calf tenderness , normal capillary refill Neurologic/Psychiatric: alert, normal mood/affect, oriented x 3 Skin: normal color, warm/dry, no rash Assessment & Plan Assessment & Plan large right ureteral and renal stones plan right ureteroscopy laser lithotripsy basket stone extraction stent exchange cipro orally plus a 24 hr dose of gent vocational counselor knee high scds vocational counselor
[2016-02-26] MEDS ORDERED: NURSING VERBAL MED ORDER ONE (07:15)
[2016-02-26] MEDS ORDERED: EpHEDrine SULFATE INJ 50 MG/ML AMP IV PRN (07:45)
[2016-02-26] MEDS ORDERED: ATROPINE SULFATE 0.1 MG/ML 5ML SYR IV PRN (07:45)
[2016-02-26] MEDS ORDERED: PHENYLEPHRINE HCL INJ 10 MG/ML VIAL ONE (07:47)
[2016-02-26] MEDS ORDERED: BELLADONNA/OPIUM SUPP 60 MG SUPP PR ONE ×2 (08:59→09:06)
--- NOTE | 2016-02-26 09:28 | DIAGNOSTIC IMAGING REPORT ---
INTRAOPERATIVE RADIOGRAPHS CLINICAL HISTORY: Right-sided lithotripsy and ureteral stent placement. Fluoroscopy time: 25 seconds. FINDINGS: 4 spot fluoroscopic views of the right abdomen from a retrograde ureterogram and lithotripsy procedure are presented. The initial image shows the lithotripsy device projecting over the right renal pelvis with large renal calculi. The next images show progressive fragmentation of the large stones. The final image shows the distal end of a right ureteral stent in place. IMPRESSION: Intraoperative images from right-sided lithotripsy and ureteral stent placement as above. See operative report for detailed findings. Electronically signed by: Kobe Artis M.D. 02/26/2016 9:26 AM Dictated Date/Time: 02/26/2016 9:24 AM
[2016-02-26] MEDS: FENTANYL CITRATE INJ 50 MCG/1 ML 2 ML VIAL IV PRN ×3 (09:29→09:41)
--- NOTE | 2016-02-26 09:37 | [facility] Operative Report ---
Operative Report Operative Date Feb 26, 2016. Pre-Operative Diagnosis Large Right Ureteral and Renal stones; Urinary Tract Infection Post-Operative Diagnosis same Procedure(s) Performed cysto, right ureteroscopy laser lithotripsy basket stone extraction stent exchange Surgeon Dr. Clara Reese Personal Injury Litigation Paralegal Surgeon(s) none Estimated Blood Loss 5ml Findings radio-opaque right ureteral and renal stones, resolved cystitis Specimens A.) Large Right Ureteral and Renal stones for Chemical Analysis Drains 6 fr 24 cetnieter double j stent Anesthesia LMA Complication(s) None Disposition Recovery Room / PACU Indications large stones and uti Description of Procedure Patient was given LMA and placed in lithotomy position. Her genitals were prepped and draped in sterile fashion. Time out held with team. I placed a 22 fr rigid cystoscope to bladder. The urethra is unremarkable. The UOs are in normal location. There is mucous on the right stent. I grasped stent tip and withdrew to meatus. using stent as a guide I placed a stiff wire to the kidney. I used a flexible ureteroscope to enter right ureter and laser the stone into about 8 pieces. I removed each piece with a basket. I ahve cleared the ureter. I then placed a secod wire and placed a 28 centimeter 12/14 ureteral access sheath to the upper ureter under fluoro guidance. I used the flex uscope to laser the 2 large right renal stones with a 270 micron holmium laser fiber. I tried to dust the stone for the most part but there are about 20 pieces from each stone. I removed about a dozen stones. I will hae to stage the surgery. Her UPJ is folded over making entry into renal pelvis difficult. I removed the ureteroscope and sheath again ensuring the ureter is stone free. I placed a 24 centimeter 6 Fr double J stent easily. I rinsed all the stone pieces out of the bladder and left it empty. I placed a belladonna and opium suppository for post-op pain. She transferred to recovery under my escort, in stable condition. Plan: Home today Pyridium for dysuria x 3 days flomax daily cipro for 3 more days. oral pain meds as needed return to OR in 2 weeks urine culture in one week. ASA 2 dirty case 24 seconds fluoro cipro and gentamycin antibiotic shoulder boner I attest to the content of the Intraoperative Record and any orders documented therein. Any exceptions are noted below.
[2016-02-26] MEDS ORDERED: PHEN-775 PO (09:39)
[2016-02-26] MEDS ORDERED: OXYC1TAB3 PO (09:39)
[2016-02-26] MEDS ORDERED: TAMS0.4C38 PO (09:39)
--- NOTE | 2016-02-26 09:42 | Discharge Instructions ---
Discharge Instructions Admission Reason for Admission: Kidney Stones Discharge Discharge Diagnosis / Problem: utis and kidney stones Discharge Goals Goal(s): Decrease discomfort, Improve function, Increase independence, Improve disease control Activity Recommendations Activity Limitations: resume your previous activity Lifting Limitations: none Exercise/Sports Limitations: none May Resume Sexual Activity: when tolerated Shower/Bathe: no limitations Driving or Machine Use: resume 1 day after discharge . Instructions / Follow-Up Instructions / Follow-Up come to ER for fever over 100F. expect blood in urine for days drink 10 ounces of fluid every 2 hours while awake take cipro twice daily for 3 more days then stop We need new urine culture mid to late next week you will have repeat surgery in 2 weeks Discharge Diet Recommended Diet: Regular Diet Fluid Restriction: None Procedures Procedures Performed: Right Cystoscopy, Ureteroscopy, Laser Lithotripsy, Basket Stone Extraction, Right Stent Exchange Pending Studies Studies pending at discharge: no Work Instructions Return To Work: 3 days Lifting Limitations: none Medical Emergencies . Who to Call and When: Medical Emergencies: If at any time you feel your situation is an emergency, please call 911 immediately. . Non-Emergent Contact Non-Emergency issues call your: Urologist Call Non-Emergent contact if: temperature is above 100.5 . . "Provider Documentation" section prepared by Clara Reese. VTE Core Measure Inpt VTE Proph given/why not?: SCD's [place] Drug Monitoring Program Search Results: patient reviewed within database, no issues identified
--- NOTE | 2016-02-26 09:53 | Anesthesiology Progress Note ---
Anesthesia Post Op Note Date & Time Feb 26, 2016 at 09:53 Vital Signs Pain Intensity: 2.0 Vital Signs Past 12 Hours Date Time Temp Pulse Resp B/P Pulse Ox O2 Delivery O2 Flow Rate FiO2 02/26/16 09:40 70 12 102/61 100 Mask 10 02/26/16 09:30 66 14 114/65 100 Mask 10 02/26/16 09:21 36.7 93 18 121/67 100 Mask 10 02/26/16 05:41 36.6 71 16 110/62 97 Room Air Notes Mental Status: alert / awake / arousable, participated in evaluation Pt Amnestic to Procedure: Yes Nausea / Vomiting: adequately controlled Pain: adequately controlled Airway Patency, RR, SpO2: stable & adequate BP & HR: stable & adequate Hydration State: stable & adequate Anesthetic Complications: no major complications apparent
[2016-02-26 10:05] VITALS: BP 95/61; PULSE 63; TEMP 36.6; O2SAT 98
== END 2016-02-26 11:10 | disposition home or self-care (01) ==
LOC: C.ACU 05:24
PROVIDERS: ATTEND Urology
DX: Z46.6 Encounter for fitting and adjustment of urinary device (principal); N20.2 Calculus of kidney with calculus of ureter; N39.0 Urinary tract infection, site not specified

== ENCOUNTER → 2016-03-04 | Outpatient (CLI) | payer BC ==
[~2016-03-04] MED LIST changes: +TAMS0.4C38 PO
--- NOTE | 2016-03-04 12:58 | DIAGNOSTIC IMAGING REPORT ---
THYROID ULTRASOUND CLINICAL HISTORY: Is a nodular thyroid gland. Mediastinal mass. COMPARISON STUDY: Chest CT scan performed 03/04/2016 FINDINGS: The right lobe of the thyroid measures 5.9 x 1.5 x 1.6 cm. The left lobe of thyroid measures 5.3 x 1.1 x 1.5 cm. Abutting the inferior aspect of the thyroid gland in the midline is a 29 x 19 x 32 mm solid mass. This likely represents an exophytic thyroid nodule. Within lower pole the right lobe, there is 11 x 9 x 8 mm solid nodule. Within mid pole is a 3 mm solid nodule. On the left there is a 3 mm mid pole probably cystic nodule and 5 mm upper pole spongiform nodule. Both lobes are slightly heterogeneous in echotexture. IMPRESSION: 1. Multinodular thyroid gland. 2. Abutting the lower pole of the thyroid solid mass measuring 28 x 19 x 32 mm. This likely represents an exophytic thyroid nodule. This nodule is amenable to ultrasound-guided fine-needle aspiration biopsy. Biopsy is recommended based on size criteria. Electronically signed by: Collins Sun M.D. 03/04/2016 12:56 PM Dictated Date/Time: 03/04/2016 12:48 PM
--- NOTE | 2016-03-04 13:19 | DIAGNOSTIC IMAGING REPORT ---
CT OF THE CHEST WITHOUT IV CONTRAST CLINICAL HISTORY: Mediastinal mass. Pleural effusion. COMPARISON STUDY: Chest CT February 18, 2016. CT DOSE: 214.56 mGy.cm TECHNIQUE: Axial images of the chest were obtained without IV contrast. Images were reviewed in the axial, sagittal, and coronal planes. IV contrast was not administered for this examination. FINDINGS: No enlarged axillary, mediastinal or hilar lymph nodes are present. There is a 3.2 x 2.7 x 1.9 cm hyperdense mass located immediately inferior to the thyroid gland. This is likely thyroid in etiology. The size of the heart is normal. There is no pericardial effusion. No consolidation is identified to suggest pneumonia. The bilateral effusions and airspace opacities shown on CT of February 18, 2016 have resolved. The central airways are patent. There is no pneumothorax. No suspicious osseous lesions are present. Note is made of a 1 cm central left breast nodule. There is a 5 mm left renal calculus. IMPRESSION: 1. Resolution of bilateral pleural effusions and airspace opacities shown on CT of February 18, 2016. 2. 3.2 x 2.7 x 1.9 cm hyperdense upper mediastinal mass immediately inferior to the thyroid gland. This likely reflects a thyroid nodule and ultrasound-guided fine needle aspiration could be performed. 3. 1 cm central left breast nodule. This likely reflects a fibroadenoma although malignancy could appear similar. Follow-up nonemergent mammogram and ultrasound are recommended. Electronically signed by: Eladio Melendrez M.D. 03/04/2016 1:17 PM Dictated Date/Time: 03/04/2016 12:50 PM
== END | disposition home or self-care (01) ==
LOC: C.ULTR 11:59
PROVIDERS: ATTEND Surgery
DX: J90 Pleural effusion, not elsewhere classified (principal); N63 Unspecified lump in breast; E04.2 Nontoxic multinodular goiter

== ENCOUNTER → 2016-03-13 | Outpatient (CLI) | payer BC ==
[~2016-03-13] MED LIST changes: -TAMS0.4C38 PO
--- NOTE | 2016-03-13 14:12 | Discharge Instructions ---
Discharge Instructions Procedure Procedure Date: Mar 13, 2016. Reason for visit: Thyroid Biopsy; Thyroid Nodule. Discharge Discharge Date: Mar 13, 2016. Discharge Diagnosis: same Instructions Activity Recommendations: No limitations Return to School/Work: no limitations Recommended Home Diet: Resume Previous Diet Provider Instructions: ACTIVITY RECOMMENDATIONS: * Rest today. * Resume regular activity in one day. MEDICATIONS: * May take Tylenol or Ibuprofen as needed for pain. DIET: * Resume previous diet. SPECIAL CARE INSTRUCTIONS: Call your doctor if: * Temperature above 101 degrees F. * Pain not relieved by pain medicine ordered. * Increased drainage or redness from incision. * Notify your doctor with any questions or concerns. Call your doctor or go to the nearest Emergency Department if you experience: * Increased chest pain or shortness of breath. FOLLOW UP VISIT: Follow-up with Referring Physician as scheduled. Allergies Coded Allergies: No Known Allergies (Unverified , 02/26/16) Lynne Garibay Recommendations: Call your doctor if: * Temperature above 101 degrees * Pain not relieved by pain medicine ordered * There is increased drainage or redness from any incision * You have any unanswered questions or concerns. Your Doctors Instructions noted above were prepared by provider Zacarias Harmon. Patient Signature Section: Patient Instructions Signature Page Indu [email or web address] Patient (or Guardian) Signature/Date: I have read and understand the instructions given to me by my caregivers. Caregiver/RN/Doctor Signature/Date: The above-named patient and/or guardian has received patient instructions on this date. + Original Patient Signature Page (only) stays with chart. Please make copy for patient.
--- NOTE | 2016-03-13 15:58 | DIAGNOSTIC IMAGING REPORT ---
ULTRASOUND-GUIDED FINE-NEEDLE ASPIRATION OF A THYROID NODULE HISTORY: THYROID NODULE COMPARISON: Thyroid ultrasound 03/04/2016. PROCEDURE: Written informed consent was obtained. The neck was prepped and draped in the usual sterile fashion. 1% lidocaine was used for local anesthesia. A total of 2 passes using a 25-gauge needle were made through nodule inferior to the thyroid isthmus under ultrasound guidance. Specimens were given to the on-site pathologist who determined adequate tissue for diagnosis. The patient tolerated the procedure well. There were no immediate locations. IMPRESSION: Successful ultrasound-guided fine-needle aspiration of a thyroid nodule. Electronically signed by: Zacarias Harmon M.D. 03/13/2016 3:56 PM Dictated Date/Time: 03/13/2016 3:55 PM
== END | disposition home or self-care (01) ==
LOC: C.ULTR 12:27
PROVIDERS: ATTEND Surgery
DX: E04.1 Nontoxic single thyroid nodule (principal)

== ENCOUNTER → 2017-10-01 | Outpatient (CLI) | payer BC ==
[~2017-10-01] MED LIST changes: -CLON0.5T3 PO; +KLN/5 PO; +OXYC-90 PO; -OXYC1TAB3 PO
--- NOTE | 2017-10-01 12:59 | DIAGNOSTIC IMAGING REPORT ---
ABDOMEN COMPLETE (US) CLINICAL HISTORY: GENERALIZED ABDOMINAL PAIN COMPARISON STUDY: CT scan dated 02/17/2016 FINDINGS: The pancreas appears sonographically normal. The liver appears sonographically normal. The gallbladder appears sonographically normal. There is no intrahepatic biliary ductal dilatation. The common hepatic duct is mildly dilated measuring up to 11 mm. The distal common bile duct was not well-visualized. The spleen appears normal. The left kidney measures 11.2 cm in length. There is an 11 mm upper pole left renal cyst. The right kidney measures 10.5 cm in length. Bilateral renal calculi are suspected. There is no hydronephrosis. Bilateral ureteral jets were visualized. No bladder abnormality is evident. Incidental note is made of a 26 mm right ovarian follicle and 23 mm left vaginal cyst versus left ovarian follicle No abnormalities of the IVC or aorta were visualized. IMPRESSION: 1. Ultrasonographically normal liver, spleen, pancreas, and gallbladder. 2. Borderline dilatation of the common hepatic duct which measures 11 mm 3. Suspected bilateral nephrolithiasis. No evidence of hydronephrosis Electronically signed by: Collins Sun M.D. 10/01/2017 12:58 PM Dictated Date/Time: 10/01/2017 12:53 PM
== END | disposition home or self-care (01) ==
LOC: C.ULTRBC 11:44
PROVIDERS: ATTEND Physician Assistant Medical
DX: R10.84 Generalized abdominal pain (principal)